=== PATIENT | female | born 1930 | race Caucasian/White ===

== ENCOUNTER → 2017-02-23 | Outpatient (CLI) | payer MEDICARE, BC ==
[2017-02-23 10:18] LABS: Basophils % (A) 0 %; CH 31.2; CHCM 33.1; Eosinophils # (A) 0.2 k/uL (0-0.7); Eosinophils % (A) 4 %; HCT 36.4 % (34.0-46.0); HDW 2.27; Luc # (Auto) 0.12; Luc % (Auto) 3; Lymphocytes # (A) 1.4 k/uL (1.0-4.8); Lymphocytes % (A) 30 %; MCH 31.2 pg (25.0-35.0); MCHC 32.8 g/dL (31.0-37.0); MCV 94.9 fL (80.0-100.0); Mean Platelet Volume 6.7; Monocytes # (A) 0.2 k/uL (0-1.0); Monocytes % (A) 5 %; Neutrophils # (A) 2.7 k/uL (1.3-7.7); Neutrophils % (A) 58 %; RBC 3.84 m/uL (3.80-5.40); RDW 13.3 % (11.5-15.5); WBC 4.7 k/uL (3.8-10.6); WBC (Perox) 4.86
[2017-02-23 10:42] LABS: ALT 24 U/L (9-52); AST 19 U/L (14-36); Alkaline Phosphatase 74 U/L (38-126); Anion Gap 10 mmol/L; Blood Urea Nitrogen 25 mg/dL (7-17); Calcium 9.4 mg/dL (8.4-10.2); Carbon Dioxide 28 mmol/L (22-30); Chloride 103 mmol/L (98-107); Cholesterol 182 mg/dL (<200); Glucose 125 mg/dL (74-99); HDL Cholesterol 62 mg/dL (40-60); Non-African American GFR(MDRD) >60 (>60 ml/min/1.73 sqM); Potassium 4.3 mmol/L (3.5-5.1); Sodium 141 mmol/L (137-145); Total Bilirubin 1.1 mg/dL (0.2-1.3); Total Protein 7.1 g/dL (6.3-8.2); Triglycerides 58 mg/dL (<150)
[2017-02-23 11:35] LABS: Hemoglobin A1C 6.7 % (4.2-6.1)
== END | disposition home or self-care (01) ==
LOC: LABWHC1 09:13
PROVIDERS: ATTEND Family Medicine
DX: E11.9 Type 2 diabetes mellitus without complications (principal)
CPT/HCPCS: 36415; 80053; 80061; 82043; 83036; 84443; 85025

== ENCOUNTER → 2017-09-03 | Outpatient (CLI) | payer MEDICARE, BC ==
[2017-09-03 09:16] LABS: ALT 36 U/L (9-52); AST 24 U/L (14-36); Alkaline Phosphatase 74 U/L (38-126); Anion Gap 11 mmol/L; Blood Urea Nitrogen 21 mg/dL (7-17); Calcium 9.7 mg/dL (8.4-10.2); Carbon Dioxide 26 mmol/L (22-30); Chloride 103 mmol/L (98-107); Cholesterol 210 mg/dL (<200); Glucose 152 mg/dL (74-99); HDL Cholesterol 74 mg/dL (40-60); Non-African American GFR(MDRD) >60 (>60 ml/min/1.73 sqM); Potassium 4.5 mmol/L (3.5-5.1); Sodium 140 mmol/L (137-145); Total Bilirubin 1.2 mg/dL (0.2-1.3); Total Protein 7.5 g/dL (6.3-8.2)
[2017-09-03 12:17] LABS: Hemoglobin A1C 6.9 % (4.2-6.1)
== END | disposition home or self-care (01) ==
LOC: LABWHC1 08:32
PROVIDERS: ATTEND Family Medicine
DX: E11.9 Type 2 diabetes mellitus without complications (principal)
CPT/HCPCS: 36415; 80053; 80061; 83036

== ENCOUNTER → 2018-03-18 | Outpatient (CLI) | payer MEDICARE, BC ==
[2018-03-18 10:40] LABS: Basophils % (A) 1 %; Eosinophils # (A) 0.3 k/uL (0-0.7); Eosinophils % (A) 5 %; HCT 37.2 % (34.0-46.0); HGB 12.6 gm/dL (11.4-16.0); Lymphocytes # (A) 1.9 k/uL (1.0-4.8); Lymphocytes % (A) 34 %; MCH 30.8 pg (25.0-35.0); MCV 90.4 fL (80.0-100.0); Mean Platelet Volume 6.7; Monocytes # (A) 0.3 k/uL (0-1.0); Monocytes % (A) 5 %; Neutrophils # (A) 2.9 k/uL (1.3-7.7); Neutrophils % (A) 53 %; Platelet Count 241 k/uL (150-450); RBC 4.11 m/uL (3.80-5.40); RDW 13.8 % (11.5-15.5); WBC 5.5 k/uL (3.8-10.6)
[2018-03-18 10:54] LABS: ALT 28 U/L (9-52); AST 18 U/L (14-36); Albumin 4.1 g/dL (3.5-5.0); Alkaline Phosphatase 79 U/L (38-126); Anion Gap 10 mmol/L; Blood Urea Nitrogen 30 mg/dL (7-17); Calcium 9.3 mg/dL (8.4-10.2); Carbon Dioxide 27 mmol/L (22-30); Chloride 103 mmol/L (98-107); Cholesterol 216 mg/dL (<200); Glucose 135 mg/dL (74-99); HDL Cholesterol 58 mg/dL (40-60); LDL Cholesterol,Calculated 145 mg/dL (0-99); Potassium 4.3 mmol/L (3.5-5.1); Sodium 140 mmol/L (137-145); Total Bilirubin 0.9 mg/dL (0.2-1.3); Total Protein 6.7 g/dL (6.3-8.2); Triglycerides 66 mg/dL (<150)
== END | disposition home or self-care (01) ==
LOC: LABWHC1 10:08
PROVIDERS: ATTEND Family Medicine
DX: E11.65 Type 2 diabetes mellitus with hyperglycemia (principal)
CPT/HCPCS: 36415; 80053; 80061; 82043; 82570; 84443; 85025

== ENCOUNTER 2019-04-16 07:55 | Emergency (ER) | payer MEDICARE, BC ==
[2019-04-16] MEDS ORDERED: LIDOCAINE 1% INJ 10MG/ML (20 ML MDV) SQ ONE (08:16)
[2019-04-16] MEDS ORDERED: DIPH,PERTUS(ACELL)TETVAC-LF 0.5 ML VIAL IM ONE (08:16)
--- NOTE | 2019-04-16 08:21 | ED ---
Fall HPI - General Chief Complaint: Fall Stated Complaint: FALL, HEAD INJURY Time Seen by Provider: 04/16/19 08:01 Source: patient, EMS, RN notes reviewed, old records reviewed Mode of arrival: EMS - History of Present Illness Initial Comments: Patient is a pleasant 88-year-old female presents emergency department today for evaluation after she tripped and fell down the bottom of her steps. Patient reports that she was going down the stairs to get ready to make breakfast. She reports she slipped and fell, she hit her head on the wall. She denies loss conscious. She does report a laceration over her scalp. She also complains of left ankle pain and thoracic back pain. Patient states that she was able to ambulate after the incident. Denies any chest pain shortness of breath nausea or vomiting. She denies any visual changes. - Related Data Allergies Allergy/AdvReac Type Severity Reaction Status Date / Time No Known Allergies Allergy Verified 04/16/19 08:05 Review of Systems ROS Statement: Those systems with pertinent positive or pertinent negative responses have been documented in the HPI. ROS Other: All systems not noted in ROS Statement are negative. Past Medical History Past Medical History: Diabetes Mellitus, Hypertension History of Any Multi-Drug Resistant Organisms: None Reported Past Surgical History: No Surgical Hx Reported Past Psychological History: No Psychological Hx Reported Smoking Status: Never smoker Past Alcohol Use History: None Reported Past Drug Use History: None Reported General Exam - General Exam Comments Initial Comments: 88-year-old female. Alert and oriented 3. Resting comfortably in bed. No significant distress. Limitations: no limitations General appearance: alert, in no apparent distress Head exam: Present: atraumatic, normocephalic, normal inspection, other (Patient has a 4 cm laceration over the left parietal scalp.) Eye exam: Present: normal appearance, PERRL, EOMI. Absent: scleral icterus, conjunctival injection, periorbital swelling ENT exam: Present: normal exam, mucous membranes moist Neck exam: Present: normal inspection. Absent: tenderness, meningismus, lymphadenopathy Respiratory exam: Present: normal lung sounds bilaterally. Absent: respiratory distress, wheezes, rales, rhonchi, stridor Cardiovascular Exam: Present: regular rate, normal rhythm, normal heart sounds. Absent: systolic murmur, diastolic murmur, rubs, gallop, clicks GI/Abdominal exam: Present: soft, normal bowel sounds. Absent: distended, tenderness, guarding, rebound, rigid Extremities exam: Present: normal inspection, full ROM, normal capillary refill, other (She has bruising and tenderness over the left ankle and foot. No pulse and sensation distally. Full range of motion noted.). Absent: tenderness, pedal edema, joint swelling, calf tenderness Back exam: Present: normal inspection Neurological exam: Present: alert, oriented X3, CN II-XII intact Psychiatric exam: Present: normal affect, normal mood Skin exam: Present: warm, dry, intact, normal color. Absent: rash Course Vital Signs 04/16/19 08:06 Temperature 97.8 F Pulse Rate 52 L Respiratory 18 Rate Blood Pressure 180/86 O2 Sat by Pulse 96 Oximetry Procedures - Laceration Laceration #1 Site: scalp Size (cm): 4 Description: linear Depth: simple, single layer Anesthetic Used: lidocaine 1% Anesthesia Technique: local infiltration Amount (mls): 5 Pre-repair: wound explored, irrigated extensively Type of Sutures: other (Blayne) Number of Sutures: 5 Patient Tolerated Procedure: well, no complications - Orthopedic Splinting/Casting Injury #1 Side: left Upper Extremity Immobilizer: Jake wrap Lower Extremity Injury Location: ankle Medical Decision Making - Medical Decision Making 88-year-old female fall presents after tripping fall. Patient reports she fell hitting her head and complains of some neck and back pain and left ankle pain. Infections of the ankle reviewed negative for any acute process. Examining without significant difficulty. Jake wrap put on the ankle. She has a laceration of her scalp, closed with 5 blayne. She reports her tetanus is up-to-date. Blood work was reviewed and are. UA is negative for infection. Patient was instructed this time described Motrin Tylenol and stressed infection monitoring for the laceration of her scalp. - Lab Data Result diagrams: 04/16/19 08:20 04/16/19 08:20 Lab Results 04/16/19 04/16/19 04/16/19 Range/Units 08:20 08:20 08:20 WBC 4.3 (3.8-10.6) k/uL RBC 3.86 (3.80-5.40) m/uL Hgb 11.6 (11.4-16.0) gm/dL Hct 34.9 (34.0-46.0) % MCV 90.4 (80.0-100.0) fL MCH 30.1 (25.0-35.0) pg MCHC 33.3 (31.0-37.0) g/dL RDW 13.7 (11.5-15.5) % Plt Count 220 (150-450) k/uL Neutrophils % 62 % Lymphocytes % 24 % Monocytes % 6 % Eosinophils % 7 % Basophils % 0 % Neutrophils # 2.7 (1.3-7.7) k/uL Lymphocytes # 1.0 (1.0-4.8) k/uL Monocytes # 0.2 (0-1.0) k/uL Eosinophils # 0.3 (0-0.7) k/uL Basophils # 0.0 (0-0.2) k/uL Sodium 139 (137-145) mmol/L Potassium 3.9 (3.5-5.1) mmol/L Chloride 108 H (98-107) mmol/L Carbon Dioxide 26 (22-30) mmol/L Anion Gap 5 mmol/L BUN 20 H (7-17) mg/dL Creatinine 0.48 L (0.52-1.04) mg/dL Est GFR (CKD-EPI)AfAm >90 (>60 ml/min/1.73 sqM) Est GFR (CKD-EPI)NonAf 89 (>60 ml/min/1.73 sqM) Glucose 133 H (74-99) mg/dL Calcium 8.8 (8.4-10.2) mg/dL Urine Color Colorless Urine Appearance Clear (Clear) Urine pH 7.5 (5.0-8.0) Ur Specific Saxis 1.007 (1.001-1.035) Urine Protein Negative (Negative) Urine Glucose (UA) Negative (Negative) Urine Ketones Negative (Negative) Urine Blood Negative (Negative) Urine Nitrite Negative (Negative) Urine Bilirubin Negative (Negative) Urine Urobilinogen <2.0 (<2.0) mg/dL Ur Leukocyte Esterase Negative (Negative) - Radiology Data Radiology results: report reviewed CT shows no suspicious acute changes. Some mild chronic appearing white matter ischemic change may be present. Grade 1 spondylolisthesis anterior on C6 and C7. Degenerative changes C5-C6. Mild degenerative disc disease remaining cervical spine. Glasses of lower spine. Degenerative changes in the lower cervical spine. No osseous normality. No acute osseous abdomen. Follow-up exam can be performed in 7-10 days. Disposition Clinical Impression: Fall, Ankle sprain, Scalp laceration Disposition: HOME SELF-CARE Condition: Good Instructions (If sedation given, give patient instructions): Fall Prevention for Older Adults (ED) Additional Instructions: Please return to the emergency room in 8-10 days to have blayne removed. Please leave wound covered for the first 24-48 hours and then leave open to air after that time. Please use clean soap and water to clean the suture area to prevent scabbing over the top of your sutures. Please watch for any signs of infection which may include but not limited to increased pain, swelling, redness, fever or chills. Please return to the emergency room if any signs of infection do occur. Please return to the emergency room for any other concerns or complications. Motrin Tylenol for pain. Patient should apply ice over the areas that are sore. Were the Jake wrap for her ankle. Is patient prescribed a controlled substance at d/c from ED?: No Referrals: Kal Juarez MD [Primary Care Provider] - 1-2 days Time of Disposition: 10:30
[2019-04-16 08:33] LABS: Appearance,Urine Clear (Clear); Basophils % (A) 0 %; Bilirubin,Urine Negative (Negative); Blood,Urine Negative (Negative); Color,Urine Colorless; Eosinophils # (A) 0.3 k/uL (0-0.7); Eosinophils % (A) 7 %; Glucose,Urine (UA) Negative (Negative); HCT 34.9 % (34.0-46.0); HGB 11.6 gm/dL (11.4-16.0); Ketones,Urine Negative (Negative); Leukocyte Esterase,Urine Negative (Negative); Lymphocytes % (A) 24 %; MCH 30.1 pg (25.0-35.0); MCHC 33.3 g/dL (31.0-37.0); MCV 90.4 fL (80.0-100.0); Mean Platelet Volume 6.7; Monocytes # (A) 0.2 k/uL (0-1.0); Monocytes % (A) 6 %; Neutrophils # (A) 2.7 k/uL (1.3-7.7); Neutrophils % (A) 62 %; Nitrite,Urine Negative (Negative); PH, Urine 7.5 (5.0-8.0); Platelet Count 220 k/uL (150-450); Protein,Urine Negative (Negative); RBC 3.86 m/uL (3.80-5.40); RDW 13.7 % (11.5-15.5); Specific Gravity,Urine 1.007 (1.001-1.035); Urobilinogen,Urine <2.0 mg/dL (<2.0); WBC 4.3 k/uL (3.8-10.6)
[2019-04-16 08:41] LABS: Anion Gap 5 mmol/L; Blood Urea Nitrogen 20 mg/dL (7-17); Calcium 8.8 mg/dL (8.4-10.2); Carbon Dioxide 26 mmol/L (22-30); Chloride 108 mmol/L (98-107); Glucose 133 mg/dL (74-99); Potassium 3.9 mmol/L (3.5-5.1); Sodium 139 mmol/L (137-145)
--- NOTE | 2019-04-16 09:56 | CT ---
EXAMINATION TYPE: CT brain ranjit wo con DATE OF EXAM: 04/16/2019 COMPARISON: 02/24/2014 HISTORY: Fall today with Posterior injury CT DLP: 1353.9 mGycm, Automated exposure control for dose reduction was used. CONTRAST: Patient injected with 0 mL of Isovue 300. CT of the brain is performed utilizing 3 mm thick sections through the posterior fossa and 3 mm thick sections through the remaining calvarium. Study is performed within 24 hours of arrival to the hospital. No abnormal hyperdensity is present to suggest an acute intracranial hemorrhage. No mass lesion is evident. No acute infarcts are evident. Some mild periventricular white matter hypodensity is present, likely on the basis of chronic white matter ischemic change is increasing left watershed region. Ventricles and sulci are appropriate for the patient age. Paranasal sinuses and mastoid air cells within the [id number] are clear. IMPRESSIONS: 1. No suspicious acute changes. Some mild chronic appearing white matter ischemic change may be prese nt. CT cervical spine. COMPARISON: None CT of the cervical spine is performed in the axial plane at 2 mm thick sections. Reconstructed image s in the coronal, and sagittal plane are reviewed on the computer. No acute fractures are evident. There is a grade 1 spondylolisthesis of C6 anteriorly on C7. There is loss of disc height C5-6 and degenerative disc changes C4-5. Diffuse disc space degenerative changes present through the remaining cervical spine. Vertebral body heights are preserved. No spinal canal stenosis is evident. No neural foraminal stenosis is evident. Some mild apical areas of pneumonitis are present. Consider follow-up. IMPRESSIONS: 1. Grade 1 spondylolisthesis C6 anteriorly on C7. 2. Degenerative disc changes C5-6 and to a lesser degree C4-5. Mild degenerative disc changes through the remaining cervical spine.
--- NOTE | 2019-04-16 10:25 | XR ---
EXAMINATION TYPE: XR ankle complete LT DATE OF EXAM: 04/16/2019 COMPARISON: None HISTORY: Pain fall TECHNIQUE: 3 view left ankle FINDINGS: Structures appear somewhat osteopenic. The ankle mortise is intact. No acute displaced frac tures are identified. Soft tissues appear normal. IMPRESSION: 1. No acute osseous abnormality. Follow-up exams can be performed 7-10 days from acute trauma for co ntinued pain.
--- NOTE | 2019-04-16 10:26 | XR ---
EXAMINATION TYPE: XR thoracic spine 2V DATE OF EXAM: 04/16/2019 COMPARISON: None HISTORY: Fall, pain TECHNIQUE: 3 view thoracic spine FINDINGS: There is a scoliosis centered at approximately T10-11. There are 12 thoracic type vertebral bodies. The pedicles are intact. Diffuse degenerative disc changes are throughout the thoracic spine . Spondylosis within the lower thoracic spine. Grade 1 spondylolisthesis of C6 anteriorly on C7 is ag ain evident. IMPRESSION: 1. Scoliosis lower thoracic spine. 2. Degenerative disc changes greater in the lower cervical spine 3. No acute osseous abnormality.
--- NOTE | 2019-04-16 10:32 | XR ---
EXAMINATION TYPE: XR chest 2V DATE OF EXAM: 04/16/2019 COMPARISON: None INDICATION: Pain, fall TECHNIQUE: Frontal and lateral views of the chest are obtained. FINDINGS: The heart size is normal. The pulmonary vasculature is normal. The lungs are clear. IMPRESSION: 1. No acute pulmonary process.
[2019-04-16 10:50] VITALS: BP 164/89; PULSE 60; RESP 16; TEMP 97.9
== END 2019-04-16 10:55 | disposition home or self-care (01) ==
LOC: EC 07:55
DX: S01.01XA Laceration without foreign body of scalp, initial encounter (principal); S93.402A Sprain of unspecified ligament of left ankle, initial encounter; M43.12 Spondylolisthesis, cervical region; M50.321 Other cervical disc degeneration at C4-C5 level; M47.812 Spondylosis without myelopathy or radiculopathy, cervical region; M54.6 Pain in thoracic spine; Z53.20 Procedure and treatment not carried out because of patient's decision for unspecified reasons; W10.9XXA Fall (on) (from) unspecified stairs and steps, initial encounter; Y93.01 Activity, walking, marching and hiking
CPT/HCPCS: 36415; 80048; 85025; 81003; 72070; 73610; 71046; 72125; 70450; 99284; 12002; J2001

== ENCOUNTER 2020-05-29 11:34 | Emergency (ER) | payer MEDICARE, BC ==
[2020-05-29 11:45] VITALS: RESP 16; TEMP 97.9
--- NOTE | 2020-05-29 12:26 | ED ---
Fall HPI - General Source: patient, EMS, RN notes reviewed Mode of arrival: EMS <Hugo Arthur - Last Filed: 05/29/20 13:33> <Shiva Ham - Last Filed: 05/29/20 13:37> - General Chief Complaint: Fall Stated Complaint: Fall Time Seen by Provider: 05/29/20 12:18 - History of Present Illness Initial Comments: 89-year-old female presents emergency from chief complaint of fall, head injury. Patient states that she went to reach for something tripped over her chair causing her fall striking her head on the buffet. Patient states that she has headache, neck discomfort. Patient was placed in a soft collar by EMS. Patient is a hematoma to the left occipital region. Denies any blurred vision slight nausea. Patient denies any upper or lower extremity injuries no back pain. Patient states that she wants while takes an aspirin denies any thinners. (Hugo Arthur) - Related Data Home Medications Medication Instructions Recorded Confirmed ALPRAZolam [Xanax] 0.25 mg PO DAILY PRN 04/16/19 04/16/19 Atorvastatin Calcium [Lipitor] 20 mg PO DAILY 04/16/19 04/16/19 HYDROcodone/APAP 5-325MG [[place] 1 tab PO Q12H PRN 04/16/19 04/16/19 5-325] Lisinopril 30 mg PO DAILY 04/16/19 04/16/19 amLODIPine [Norvasc] 5 mg PO DAILY 04/16/19 04/16/19 glipiZIDE [Glucotrol XL] 2.5 mg PO DAILY 04/16/19 04/16/19 Allergies Allergy/AdvReac Type Severity Reaction Status Date / Time No Known Allergies Allergy Verified 05/29/20 11:45 Review of Systems ROS Other: All systems not noted in ROS Statement are negative. <Hugo Arthur - Last Filed: 05/29/20 13:33> ROS Other: All systems not noted in ROS Statement are negative. <Shiva Ham - Last Filed: 05/29/20 13:37> ROS Statement: Those systems with pertinent positive or pertinent negative responses have been documented in the HPI. Past Medical History Past Medical History: Diabetes Mellitus, Hypertension History of Any Multi-Drug Resistant Organisms: None Reported Past Surgical History: No Surgical Hx Reported Past Psychological History: No Psychological Hx Reported Smoking Status: Never smoker Past Alcohol Use History: None Reported Past Drug Use History: None Reported <JersonHugo - Last Filed: 05/29/20 13:33> General Exam Limitations: no limitations General appearance: alert, in no apparent distress Head exam: Present: atraumatic, normocephalic. Absent: normal inspection ( hematoma left occipital) Eye exam: Present: normal appearance, PERRL, EOMI. Absent: scleral icterus, conjunctival injection, periorbital swelling ENT exam: Present: normal exam, normal oropharynx, mucous membranes moist, TM's normal bilaterally Neck exam: Present: normal inspection, tenderness. Absent: meningismus, full ROM (Patient soft c-collar), lymphadenopathy Respiratory exam: Present: normal lung sounds bilaterally. Absent: respiratory distress, wheezes, rales, rhonchi, stridor Cardiovascular Exam: Present: regular rate, normal rhythm, normal heart sounds. Absent: systolic murmur, diastolic murmur, rubs, gallop, clicks Neurological exam: Present: alert, oriented X3, CN II-XII intact, reflexes normal. Absent: motor sensory deficit Skin exam: Present: warm, dry, intact, normal color. Absent: rash <JersonHugo Watkins - Last Filed: 05/29/20 13:33> Course <Shiva Ham - Last Filed: 05/29/20 13:37> Vital Signs 05/29/20 11:42 Temperature 97.9 F Pulse Rate 60 Respiratory 16 Rate Blood Pressure 148/77 O2 Sat by Pulse 96 Oximetry - Reevaluation(s) Reevaluation #1: 05/29/20 13:36 PA supervision: I pursued a [id number] evaluation the patient she does present with complaints of a fall with left occipital pain. Evidence a hematoma no laceration. Patient had a CAT scan performed which was negative for acute processes. Patient was awake alert oriented 3 with a [place] Coma Scale of 15 she will be discharged. No other injuries reported. (Shiva Ham) Medical Decision Making <JersonHugo - Last Filed: 05/29/20 13:33> - Medical Decision Making 89-year-old female presents emergency from for fall, head injury. CT of head and neck were obtained there are no acute changes there are chronic changes unchanged from prior. Patient is neurologically intact. Patient be discharged in stable condition return parameters were discussed. (Hugo Arthur) Disposition Is patient prescribed a controlled substance at d/c from ED?: No Time of Disposition: 13:34 <Hugo Arthur - Last Filed: 05/29/20 13:33> <Shiva Ham - Last Filed: 05/29/20 13:37> Clinical Impression: Fall, Head injury, Scalp contusion Disposition: HOME SELF-CARE Condition: Stable Instructions (If sedation given, give patient instructions): Head Injury (ED) Additional Instructions: Please return to the Emergency Department if symptoms worsen or any other concerns. Referrals: Kal Juarez MD [Primary Care Provider] - 1-2 days
--- NOTE | 2020-05-29 13:26 | CT ---
EXAMINATION TYPE: CT brain ranjit wo con DATE OF EXAM: 05/29/2020 COMPARISON: 04/16/2019 HISTORY: 89-year-old female with pain after Fall CT DLP: 1255.4 mGycm Automated exposure control for dose reduction was used. Technique: Examination of the head was done in axial plane without intravenous contrast. Coronal and sagittal reconstructions performed. CT of the cervical spine was obtained in axial plane without intravenous injection of contrast mater ial. Coronal and sagittal reformatted images were obtained from the axial views for evaluation of f ractures, spinal alignment and canal. FINDINGS: Head: There is no evidence of acute intracranial hemorrhage, acute ischemic changes, mass, mass-effect, or extra-axial fluid collection. There is no effacement of cerebral sulci or basal subarachnoid cister ns. There is no hydrocephalus. There is no midline shift. Nelson-white matter distinction is preserv ed. Mild cerebral cortical volume loss. Mild patchy white matter hypodensities in both cerebral hemispher es. There are spotty calcifications in the bilateral carotid siphons. Left posterior scalp contusion. No underlying calvarial fracture. Paranasal sinuses and mastoid air cells appear well pneumatized. Orbits and globes are intact. Cervical spine: No craniocervical junction of the body, predental space widening, or prevertebral soft tissue swellin g. Degenerative changes at the C1 dens articulation. Grade 2 anterolisthesis at C6-C7 and grade 1 anterolisthesis at C4-C5 and C7-T1. Severe degenerative disc disease C5-C6. Scattered facet and uncovertebral joint arthropathy. Overall appearance similar to 04/16/2019. No acute fracture of the cervical spine seen. There appears to be a levoconvex scoliosis along the up per thoracic spine. Biapical pleural parenchymal scarring. Sagittal and coronal reformatted images confirm above findings. COMBINED IMPRESSION: 1. 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 Left posterior scalp contusion. No underlying skull fracture or acute intracranial abnormality seen. 2. No acute fracture seen of the cervical spine. 3. Grade 2 anterolisthesis at C6-C7 and grade 1 anterolisthesis at C4-C5 and C7-T1, unchanged. Severe degenerative disc disease C5-C6.
[2020-05-29 13:57] VITALS: BP 142/79; PULSE 71
== END 2020-05-29 13:57 | disposition home or self-care (01) ==
LOC: EC 11:34
DX: S00.03XA Contusion of scalp, initial encounter (principal); M54.2 Cervicalgia; E11.9 Type 2 diabetes mellitus without complications; Z79.84 Long term (current) use of oral hypoglycemic drugs; W01.190A Fall on same level from slipping, tripping and stumbling with subsequent striking against furniture, initial encounter
CPT/HCPCS: 70450; 72125; 99284

== ENCOUNTER 2020-12-09 07:53 | Emergency (ER) | payer MEDICARE, BC ==
[2020-12-09] MEDS ORDERED: FAMOTIDINE 20 MG/2 ML VIAL IV STA (08:23)
[2020-12-09] MEDS ORDERED: ONDANSETRON 4 MG/2 ML VIAL IVP STA (08:23)
[2020-12-09] MEDS ORDERED: SODIUM CHLORIDE 0.9% 1,000 ML IV STA (08:23)
[2020-12-09] MEDS ORDERED: DICYCLOMINE 10 MG/ML 2 ML AMP IM STA (08:23)
--- NOTE | 2020-12-09 08:26 | ED ---
General Adult HPI - General Chief complaint: Abdominal Pain Stated complaint: Food Poisioning Time Seen by Provider: 12/09/20 08:02 Source: patient, RN notes reviewed Mode of arrival: wheelchair Limitations: no limitations - History of Present Illness Initial comments: Patient is a pleasant 89-year-old female presenting to the emergency Department with complaints of diarrhea. Onset of symptoms was 2-3 days ago after eating cheesecake. Patient had a family member also be cheesecake with similar symptoms. Patient has had diarrhea multiple times throughout the day, unclear how many. Patient is having some abdominal cramping. Patient has some mild nausea without vomiting. There is some decreased appetite. No fever. No history of chronic abdominal problems. No blood. - Related Data Home Medications Medication Instructions Recorded Confirmed ALPRAZolam [Xanax] 0.25 mg PO DAILY PRN 04/16/19 12/09/20 amLODIPine [Norvasc] 5 mg PO DAILY 04/16/19 12/09/20 glipiZIDE [Glucotrol XL] 2.5 mg PO DAILY 04/16/19 12/09/20 lisinopriL 30 mg PO DAILY 04/16/19 12/09/20 Aspirin EC [Ecotrin Low Dose] 81 mg PO BID 12/09/20 12/09/20 Vit C/E/Zn/Coppr/Lutein/Zeaxan 1 cap PO BID 12/09/20 12/09/20 [Preservision Areds 2 Softgel] Allergies Allergy/AdvReac Type Severity Reaction Status Date / Time No Known Allergies Allergy Verified 12/09/20 09:46 Review of Systems ROS Statement: Those systems with pertinent positive or pertinent negative responses have been documented in the HPI. ROS Other: All systems not noted in ROS Statement are negative. Constitutional: Denies: fever Eyes: Denies: eye pain ENT: Denies: ear pain Respiratory: Denies: cough Cardiovascular: Denies: chest pain Endocrine: Denies: fatigue Gastrointestinal: Reports: as per HPI, abdominal pain, nausea, diarrhea. Denies: vomiting Genitourinary: Denies: dysuria Musculoskeletal: Denies: back pain Skin: Denies: rash Neurological: Denies: headache Past Medical History Past Medical History: Diabetes Mellitus, Hypertension History of Any Multi-Drug Resistant Organisms: None Reported Past Surgical History: No Surgical Hx Reported Past Psychological History: No Psychological Hx Reported Smoking Status: Former smoker Past Alcohol Use History: None Reported Past Drug Use History: None Reported General Exam Limitations: no limitations General appearance: alert, in no apparent distress Head exam: Present: normocephalic Eye exam: Present: normal appearance Neck exam: Present: normal inspection Respiratory exam: Present: normal lung sounds bilaterally Cardiovascular Exam: Present: regular rate, normal rhythm Expanded Peripheral pulses: 2+: Posterior Tibialis (R), Posterior Tibialis (L) GI/Abdominal exam: Present: soft, tenderness (Minimal diffuse tenderness), normal bowel sounds. Absent: distended, guarding, rebound, rigid, pulsatile mass Extremities exam: Present: normal inspection. Absent: pedal edema, calf tenderness Neurological exam: Present: alert Psychiatric exam: Present: normal affect, normal mood Skin exam: Present: normal color Course Vital Signs 12/09/20 12/09/20 07:57 10:50 Temperature 98.5 F Pulse Rate 64 54 L Respiratory 18 17 Rate Blood Pressure 143/81 137/90 O2 Sat by Pulse 97 97 Oximetry Medical Decision Making - Medical Decision Making Patient reevaluated and feeling much better. Abdomen soft and nontender. Patient and family updated on results and need for follow-up. Patient is happy to be going home. - Lab Data Result diagrams: 12/09/20 08:42 12/09/20 08:42 Lab Results 12/09/20 12/09/20 12/09/20 Range/Units 08:42 08:42 08:42 WBC 6.8 (3.8-10.6) k/uL RBC 3.98 (3.80-5.40) m/uL Hgb 12.7 (11.4-16.0) gm/dL Hct 36.1 (34.0-46.0) % MCV 90.6 (80.0-100.0) fL MCH 31.8 (25.0-35.0) pg MCHC 35.1 (31.0-37.0) g/dL RDW 13.1 (11.5-15.5) % Plt Count 195 (150-450) k/uL MPV 7.5 Neutrophils % 71 % Lymphocytes % 18 % Monocytes % 6 % Eosinophils % 4 % Basophils % 0 % Neutrophils # 4.8 (1.3-7.7) k/uL Lymphocytes # 1.2 (1.0-4.8) k/uL Monocytes # 0.4 (0-1.0) k/uL Eosinophils # 0.3 (0-0.7) k/uL Basophils # 0.0 (0-0.2) k/uL PT 11.3 (9.0-12.0) sec INR 1.1 (<1.2) APTT 22.4 (22.0-30.0) sec Sodium 134 L (137-145) mmol/L Potassium 4.1 (3.5-5.1) mmol/L Chloride 104 (98-107) mmol/L Carbon Dioxide 24 (22-30) mmol/L Anion Gap 6 mmol/L BUN 20 H (7-17) mg/dL Creatinine 0.54 (0.52-1.04) mg/dL Est GFR (CKD-EPI)AfAm >90 (>60 ml/min/1.73 sqM) Est GFR (CKD-EPI)NonAf 84 (>60 ml/min/1.73 sqM) Glucose 255 H (74-99) mg/dL Calcium 9.1 (8.4-10.2) mg/dL Total Bilirubin 1.4 H (0.2-1.3) mg/dL AST 17 (14-36) U/L ALT 13 (4-34) U/L Alkaline Phosphatase 62 (38-126) U/L Total Protein 6.6 (6.3-8.2) g/dL Albumin 3.8 (3.5-5.0) g/dL Amylase <30 L (30-110) U/L Lipase 22 L (23-300) U/L Coronavirus (PCR) (Not Detectd) 12/09/20 Range/Units 09:23 WBC (3.8-10.6) k/uL RBC (3.80-5.40) m/uL Hgb (11.4-16.0) gm/dL Hct (34.0-46.0) % MCV (80.0-100.0) fL MCH (25.0-35.0) pg MCHC (31.0-37.0) g/dL RDW (11.5-15.5) % Plt Count (150-450) k/uL MPV Neutrophils % % Lymphocytes % % Monocytes % % Eosinophils % % Basophils % % Neutrophils # (1.3-7.7) k/uL Lymphocytes # (1.0-4.8) k/uL Monocytes # (0-1.0) k/uL Eosinophils # (0-0.7) k/uL Basophils # (0-0.2) k/uL PT (9.0-12.0) sec INR (<1.2) APTT (22.0-30.0) sec Sodium (137-145) mmol/L Potassium (3.5-5.1) mmol/L Chloride (98-107) mmol/L Carbon Dioxide (22-30) mmol/L Anion Gap mmol/L BUN (7-17) mg/dL Creatinine (0.52-1.04) mg/dL Est GFR (CKD-EPI)AfAm (>60 ml/min/1.73 sqM) Est GFR (CKD-EPI)NonAf (>60 ml/min/1.73 sqM) Glucose (74-99) mg/dL Calcium (8.4-10.2) mg/dL Total Bilirubin (0.2-1.3) mg/dL AST (14-36) U/L ALT (4-34) U/L Alkaline Phosphatase (38-126) U/L Total Protein (6.3-8.2) g/dL Albumin (3.5-5.0) g/dL Amylase (30-110) U/L Lipase (23-300) U/L Coronavirus (PCR) Not Detected (Not Detectd) - Radiology Data Radiology results: report reviewed (Computed tomography scan abdomen pelvis shows possible enteritis or colitis), image reviewed (Abdominal x-ray reveals no acute process) Disposition Clinical Impression: Diarrhea Disposition: HOME SELF-CARE Condition: Stable Instructions (If sedation given, give patient instructions): Dehydration (ED), Acute Diarrhea (ED) Additional Instructions: Please follow-up with primary care physician in the beginning of the week. Increase oral fluids. Return for fevers, abdominal pain, uncontrolled diarrhea, concerns for dehydration, worsening symptoms or other concerns. Is patient prescribed a controlled substance at d/c from ED?: No Referrals: Kal Juarez MD [Primary Care Provider] - 1-2 days Time of Disposition: 11:11
[2020-12-09 08:46] LABS: Basophils % (A) 0 %; Eosinophils # (A) 0.3 k/uL (0-0.7); Eosinophils % (A) 4 %; HCT 36.1 % (34.0-46.0); HGB 12.7 gm/dL (11.4-16.0); Lymphocytes # (A) 1.2 k/uL (1.0-4.8); Lymphocytes % (A) 18 %; MCH 31.8 pg (25.0-35.0); MCHC 35.1 g/dL (31.0-37.0); MCV 90.6 fL (80.0-100.0); Mean Platelet Volume 7.5; Monocytes # (A) 0.4 k/uL (0-1.0); Monocytes % (A) 6 %; Neutrophils # (A) 4.8 k/uL (1.3-7.7); Neutrophils % (A) 71 %; Platelet Count 195 k/uL (150-450); RBC 3.98 m/uL (3.80-5.40); RDW 13.1 % (11.5-15.5); WBC 6.8 k/uL (3.8-10.6)
[2020-12-09 09:01] LABS: INR 1.1 (<1.2); Partial Thromboplastin Time 22.4 sec (22.0-30.0); Prothrombin Time 11.3 sec (9.0-12.0)
[2020-12-09 09:02] LABS: ALT 13 U/L (4-34); AST 17 U/L (14-36); African American GFR (CKD) >90 (>60 ml/min/1.73 sqM); Albumin 3.8 g/dL (3.5-5.0); Alkaline Phosphatase 62 U/L (38-126); Amylase <30 U/L (30-110); Anion Gap 6 mmol/L; Blood Urea Nitrogen 20 mg/dL (7-17); Calcium 9.1 mg/dL (8.4-10.2); Carbon Dioxide 24 mmol/L (22-30); Chloride 104 mmol/L (98-107); Glucose 255 mg/dL (74-99); Lipase 22 U/L (23-300); Non-African American GFR(CKD) 84 (>60 ml/min/1.73 sqM); Potassium 4.1 mmol/L (3.5-5.1); Sodium 134 mmol/L (137-145); Total Bilirubin 1.4 mg/dL (0.2-1.3); Total Protein 6.6 g/dL (6.3-8.2)
--- NOTE | 2020-12-09 09:41 | XR ---
KUB HISTORY: Abdominal pain Frontal KUB submitted. There is a spinal curvature present. Lung bases are clear. Dense vascular calcifications are noted. B one mineralization is reduced. No evident bowel obstruction or pneumoperitoneum. IMPRESSION: Nonspecific bowel gas pattern
[2020-12-09] MEDS ORDERED: MORPHINE SULFATE 2 MG/ML SYRINGE IVP STA (09:48)
--- NOTE | 2020-12-09 10:56 | CT ---
EXAMINATION TYPE: CT abdomen pelvis w con DATE OF EXAM: 12/09/2020 COMPARISON: KUB 12/09/2020 HISTORY: Diarrhea for the past [address] DLP: 530.8 mGycm Automated exposure control for dose reduction was used. TECHNIQUE: Helical acquisition of images from the lung bases through the pelvis have been completed. CONTRAST: Performed without Oral Contrast and with IV Contrast, patient injected with 100 mL of Isovue 300. FINDINGS: The stomach is collapsed, difficult to exclude underlying mucosal abnormality. Dense athero sclerotic calcifications are present especially along the splenic artery. LUNG BASES: No significant abnormality is appreciated. AORTA: No significant abnormality is appreciated. LIVER/GB: No significant abnormality is appreciated, gallbladder thought to be contracted anteriorly. PANCREAS: Not well seen, thought to be atrophic. SPLEEN: No significant abnormality is seen. ADRENALS: No significant abnormality is seen. KIDNEYS: No significant abnormality is seen. REPRODUCTIVE ORGANS: Thought to be atrophic BOWEL: Question some thickening along the colon, possibly small bowel, there are diverticular change s within the sigmoid colon. FREE AIR: No Free Air visible. ASCITES: None visible. PELVIC ADENOPATHY: None visualized. RETROPERITONEAL ADENOPATHY: No Retroperitoneal Adenopathy visible. URINARY BLADDER: No significant abnormality is seen. OSSEOUS STRUCTURES: Degenerative disc changes, facet arthropathy noted, there is a spinal curvature. IMPRESSION: CORRELATE FOR POSSIBLE COLITIS, DIVERTICULOSIS , POSSIBLE ENTERITIS, ADDITIONAL FINDINGS ABOVE
[2020-12-09 11:21] VITALS: BP 132/65; PULSE 58; RESP 20; TEMP 98
== END 2020-12-09 11:20 | disposition home or self-care (01) ==
LOC: EC 07:53
DX: R19.7 Diarrhea, unspecified (principal); R10.9 Unspecified abdominal pain; R11.0 Nausea; R10.817 Generalized abdominal tenderness; E11.9 Type 2 diabetes mellitus without complications; I10 Essential (primary) hypertension; Z79.84 Long term (current) use of oral hypoglycemic drugs; Z79.82 Long term (current) use of aspirin; Z79.899 Other long term (current) drug therapy; Z87.891 Personal history of nicotine dependence
CPT/HCPCS: 36415; 80053; 82150; 83690; 85025; 85610; 85730; 87635; 74018; 74177; 99284; 96374; 96375 ×2; 96361 ×3; 96372; J0500; J2405; J2270; Q9967

== ENCOUNTER 2020-12-10 05:25 | Observation (INO) | payer MEDICARE, BC ==
[2020-12-10] MEDS ORDERED: ONDANSETRON 4 MG/2 ML VIAL IVP STA (05:40)
[2020-12-10] MEDS ORDERED: PANTOPRAZOLE 40 MG/10 ML VIAL IVP STA (05:40)
[2020-12-10] MEDS ORDERED: SODIUM CHLORIDE 0.9% 1,000 ML IV STA ×2 (05:40)
--- NOTE | 2020-12-10 05:41 | ED ---
Recheck HPI - General Chief Complaint: Abdominal Pain Stated Complaint: Abdominal pain Time Seen by Provider: 12/10/20 05:28 Source: patient, family, RN notes reviewed, old records reviewed Mode of arrival: wheelchair Limitations: no limitations - History of Present Illness Initial Comments: This is a 89-year-old female who was seen here for evaluation earlier today. Patient admitted earlier today for abdominal pain not feeling well persistent nausea vomiting. Symptoms of been persistent despite discharged she has consistent and persistent abdominal pain does not feel well no improvement in symptoms here in the ER MD Complaint: abnormal lab, other (abdominal pain, NV, weak) Returns Today for: Called Because of Abnormal Lab/Test Symptoms Since Prior Visit: worsening pain Associated Symptoms: malaise, nausea, abdominal pain Treatments Prior to Arrival: other medications (nausea), Given Pain Meds on - Related Data Home Medications Medication Instructions Recorded Confirmed amLODIPine [Norvasc] 5 mg PO DAILY 04/16/19 12/10/20 glipiZIDE [Glucotrol XL] 2.5 mg PO DAILY 04/16/19 12/10/20 lisinopriL 30 mg PO DAILY 04/16/19 12/10/20 Aspirin EC [Ecotrin Low Dose] 81 mg PO BID 12/09/20 12/10/20 Vit C/E/Zn/Coppr/Lutein/Zeaxan 1 cap PO BID 12/09/20 12/10/20 [Preservision Areds 2 Softgel] Allergies Allergy/AdvReac Type Severity Reaction Status Date / Time No Known Allergies Allergy Verified 12/10/20 06:35 Review of Systems ROS Statement: Those systems with pertinent positive or pertinent negative responses have been documented in the HPI. ROS Other: All systems not noted in ROS Statement are negative. Past Medical History Past Medical History: Diabetes Mellitus, Hypertension History of Any Multi-Drug Resistant Organisms: None Reported Past Surgical History: No Surgical Hx Reported Past Psychological History: No Psychological Hx Reported Smoking Status: Former smoker Past Alcohol Use History: None Reported Past Drug Use History: None Reported General Exam Limitations: no limitations General appearance: alert, in no apparent distress Head exam: Present: atraumatic, normocephalic, normal inspection Eye exam: Present: normal appearance, PERRL, EOMI. Absent: scleral icterus, conjunctival injection, periorbital swelling ENT exam: Present: normal exam, mucous membranes moist Neck exam: Present: normal inspection. Absent: tenderness, meningismus, lymphadenopathy Respiratory exam: Present: normal lung sounds bilaterally. Absent: respiratory distress, wheezes, rales, rhonchi, stridor Cardiovascular Exam: Present: regular rate, normal rhythm, normal heart sounds. Absent: systolic murmur, diastolic murmur, rubs, gallop, clicks GI/Abdominal exam: Present: soft, normal bowel sounds. Absent: distended, tenderness, guarding, rebound, rigid Extremities exam: Present: normal inspection, full ROM, normal capillary refill. Absent: tenderness, pedal edema, joint swelling, calf tenderness Back exam: Present: normal inspection Neurological exam: Present: alert, oriented X3, CN II-XII intact Psychiatric exam: Present: normal affect, normal mood Skin exam: Present: warm, dry, intact, normal color. Absent: rash Course Vital Signs 12/10/20 12/10/20 05:27 07:00 Temperature 98.5 F Pulse Rate 73 78 Respiratory 22 16 Rate Blood Pressure 149/75 149/91 O2 Sat by Pulse 98 97 Oximetry - Reevaluation(s) Reevaluation #1: Medical record is reviewed ER visit from earlier is reviewed including imaging and labs Patient has no improvement here in the ER Spoke patient regarding findings, questions answered Medical Decision Making - Medical Decision Making 89 female persistent nausea vomiting abdominal pain. Likely underlying colitis. Patient will be admitted for symptomatic therapy as she fell outpatient treatment at home - Lab Data Result diagrams: 12/10/20 05:48 12/10/20 05:48 Lab Results 12/10/20 12/10/20 12/10/20 Range/Units 05:48 05:48 05:48 WBC 8.2 (3.8-10.6) k/uL RBC 3.99 (3.80-5.40) m/uL Hgb 11.9 (11.4-16.0) gm/dL Hct 36.5 (34.0-46.0) % MCV 91.4 (80.0-100.0) fL MCH 29.9 (25.0-35.0) pg MCHC 32.7 (31.0-37.0) g/dL RDW 13.4 (11.5-15.5) % Plt Count 230 (150-450) k/uL MPV 7.5 Neutrophils % 77 % Lymphocytes % 13 % Monocytes % 5 % Eosinophils % 3 % Basophils % 0 % Neutrophils # 6.3 (1.3-7.7) k/uL Lymphocytes # 1.1 (1.0-4.8) k/uL Monocytes # 0.4 (0-1.0) k/uL Eosinophils # 0.2 (0-0.7) k/uL Basophils # 0.0 (0-0.2) k/uL Sodium 133 L (137-145) mmol/L Potassium 3.7 (3.5-5.1) mmol/L Chloride 104 (98-107) mmol/L Carbon Dioxide 22 (22-30) mmol/L Anion Gap 7 mmol/L BUN 17 (7-17) mg/dL Creatinine 0.53 (0.52-1.04) mg/dL Est GFR (CKD-EPI)AfAm >90 (>60 ml/min/1.73 sqM) Est GFR (CKD-EPI)NonAf 85 (>60 ml/min/1.73 sqM) Glucose 240 H (74-99) mg/dL Plasma Lactic Acid Fercho 1.0 (0.7-2.0) mmol/L Calcium 9.0 (8.4-10.2) mg/dL Total Bilirubin 1.3 (0.2-1.3) mg/dL AST 16 (14-36) U/L ALT 11 (4-34) U/L Alkaline Phosphatase 61 (38-126) U/L Total Protein 6.4 (6.3-8.2) g/dL Albumin 3.5 (3.5-5.0) g/dL Amylase <30 L (30-110) U/L Lipase 23 (23-300) U/L Disposition Clinical Impression: Abdominal pain, Diarrhea, Gastroenteritis, Abdominal colic Disposition: ADMITTED IP TO THIS HOSP Condition: Good Is patient prescribed a controlled substance at d/c from ED?: No
[2020-12-10 05:56] LABS: Basophils % (A) 0 %; Eosinophils # (A) 0.2 k/uL (0-0.7); Eosinophils % (A) 3 %; HCT 36.5 % (34.0-46.0); HGB 11.9 gm/dL (11.4-16.0); Lymphocytes # (A) 1.1 k/uL (1.0-4.8); Lymphocytes % (A) 13 %; MCH 29.9 pg (25.0-35.0); MCHC 32.7 g/dL (31.0-37.0); MCV 91.4 fL (80.0-100.0); Mean Platelet Volume 7.5; Monocytes # (A) 0.4 k/uL (0-1.0); Monocytes % (A) 5 %; Neutrophils # (A) 6.3 k/uL (1.3-7.7); Neutrophils % (A) 77 %; Platelet Count 230 k/uL (150-450); RBC 3.99 m/uL (3.80-5.40); RDW 13.4 % (11.5-15.5); WBC 8.2 k/uL (3.8-10.6)
[2020-12-10 06:06] LABS: ALT 11 U/L (4-34); AST 16 U/L (14-36); African American GFR (CKD) >90 (>60 ml/min/1.73 sqM); Albumin 3.5 g/dL (3.5-5.0); Alkaline Phosphatase 61 U/L (38-126); Amylase <30 U/L (30-110); Anion Gap 7 mmol/L; Blood Urea Nitrogen 17 mg/dL (7-17); Carbon Dioxide 22 mmol/L (22-30); Chloride 104 mmol/L (98-107); Glucose 240 mg/dL (74-99); Lipase 23 U/L (23-300); Non-African American GFR(CKD) 85 (>60 ml/min/1.73 sqM); Potassium 3.7 mmol/L (3.5-5.1); Sodium 133 mmol/L (137-145); Total Bilirubin 1.3 mg/dL (0.2-1.3); Total Protein 6.4 g/dL (6.3-8.2)
[2020-12-10] MEDS ORDERED: MORPHINE SULFATE 4 MG/ML SYRINGE IV PRN (06:26)
[2020-12-10] MEDS ORDERED: ONDANSETRON 4 MG/2 ML VIAL IVP PRN (06:26)
--- NOTE | 2020-12-10 07:16 | XR ---
EXAM: XR Abdomen, 2 Views CLINICAL HISTORY: ITS.REASON XR Reason: abdominal pain TECHNIQUE: Frontal view of the abdomen/pelvis with upright view of the abdomen. COMPARISON: No relevant prior studies available. FINDINGS/IMPRESSION: Nonobstructed bowel gas pattern. Suspect, small pleural effusions. No large volume free air however, only a single supine image was submitted. Consider CT scan of the abdomen and pelvis collection. Severe degenerative change of the spine with dextroconvex scoliosis of the thoracolumbar junction. Diffuse osseous demineralization. Contrast noted within the urinary bladder.
[2020-12-10 08:56] VITALS: BP 151/67; PULSE 72; RESP 18; TEMP 98.4
[2020-12-10] MEDS ORDERED: KETOROLAC 15 MG/ML 1 ML VIAL IVP PRN (10:44)
[2020-12-10 11:08] LABS: Glucose,Whole Blood 194 mg/dL (75-99)
[2020-12-10] MEDS ORDERED: SODIUM CHLORIDE 0.9% 1,000 ML IV SCH (14:15)
--- NOTE | 2020-12-10 15:04 | P.DS ---
Providers Date of admission: 12/10/20 06:26 Attending physician: Kellen Kevin Primary care physician: Nixon Juarez [facility] Course: Patient is admitted for nausea vomiting diarrhea appears to have severe enteritis, food poisoning doesn't appear to have any dysentery clinically didn't have any more diarrhea because of which no further testing is being done and patient will be discharged today. Please refer to my history of present illness for further details Patient Condition at Discharge: Good Plan - Discharge Summary New Discharge Prescriptions: Continue lisinopriL 30 mg PO DAILY glipiZIDE [Glucotrol XL] 2.5 mg PO DAILY amLODIPine [Norvasc] 5 mg PO DAILY Vit C/E/Zn/Coppr/Lutein/Zeaxan [Preservision Areds 2 Softgel] 1 cap PO BID Aspirin EC [Ecotrin Low Dose] 81 mg PO BID Discontinued ALPRAZolam [Xanax] 0.25 mg PO DAILY PRN PRN Reason: Anxiety Discharge Medication List amLODIPine [Norvasc] 5 mg PO DAILY 04/16/19 [History] glipiZIDE [Glucotrol XL] 2.5 mg PO DAILY 04/16/19 [History] lisinopriL 30 mg PO DAILY 04/16/19 [History] Aspirin EC [Ecotrin Low Dose] 81 mg PO BID 12/09/20 [History] Vit C/E/Zn/Coppr/Lutein/Zeaxan [Preservision Areds 2 Softgel] 1 cap PO BID 12/09/20 [History] Follow up Appointment(s)/Referral(s): Kal Juarez MD [Primary Care Provider] - 3 Days
[2020-12-10 16:26] LABS: Glucose,Whole Blood 216 mg/dL (75-99)
[2020-12-10] MEDS ORDERED: VIT A,C & E-LUTEIN-MINERALS 1 EACH TAB PO SCH (21:00)
[2020-12-10] MEDS ORDERED: ASPIRIN 81 MG PO SCH (21:00)
[2020-12-11] MEDS ORDERED: PANTOPRAZOLE 40 MG/10 ML VIAL IV SCH (09:00)
[2020-12-11] MEDS ORDERED: amLODIPine 5 MG TAB PO SCH (09:00)
[2020-12-11] MEDS ORDERED: lisinopriL 10 MG TAB PO SCH (09:00)
--- NOTE | 2020-12-13 08:03 | P.HPIM ---
History of Present Illness Patient is a pleasant 89-year-old female came in events of severe Abdominal pain along with nausea vomiting which started having nausea nausea vomiting multiple episodes of diarrhea is watery like diarrhea although it was noted by the nursing staff that today morning patient was having mucousy diarrhea. Patient ate cheesecake from [employer] since then patient started having nausea vomiting abdominal pain and diarrhea she had severe crampy abdominal pain. Patient's grandson had similar symptoms after he ate the the same cheesecake. Patient denied any fever chills patient had only 1 episode since morning. She was receiving IV fluids and patient had serum sodium of 133. Patient feels much better now no nausea or vomiting now Review of Systems REVIEW OF SYSTEMS: CONSTITUTIONAL: No fever, no malaise, no fatigue. HEENT: No recent visual problems or hearing problems. Denied any sore throat. CARDIOVASCULAR: No chest pain, orthopnea, PND, no palpitations, no syncope. PULMONARY: No shortness of breath, no cough, no hemoptysis. GASTROINTESTINAL: As mentioned in HPI NEUROLOGICAL: No headaches, no weakness, no numbness. HEMATOLOGICAL: Denies any bleeding or petechiae. GENITOURINARY: Denies any burning micturition, frequency, or urgency. MUSCULOSKELETAL/RHEUMATOLOGICAL: Denies any joint pain, swelling, or any muscle pain. ENDOCRINE: Denies any polyuria or polydipsia. The rest of the 14-point review of systems is negative. Past Medical History Past Medical History: Diabetes Mellitus, Hypertension History of Any Multi-Drug Resistant Organisms: None Reported Past Surgical History: No Surgical Hx Reported Past Psychological History: No Psychological Hx Reported Smoking Status: Former smoker Past Alcohol Use History: None Reported Past Drug Use History: None Reported Medications and Allergies Home Medications Medication Instructions Recorded Confirmed Type ALPRAZolam [Xanax] 0.25 mg PO DAILY PRN 04/16/19 12/10/20 History amLODIPine [Norvasc] 5 mg PO DAILY 04/16/19 12/10/20 History glipiZIDE [Glucotrol XL] 2.5 mg PO DAILY 04/16/19 12/10/20 History lisinopriL 30 mg PO DAILY 04/16/19 12/10/20 History Aspirin EC [Ecotrin Low Dose] 81 mg PO BID 12/09/20 12/10/20 History Vit C/E/Zn/Coppr/Lutein/Zeaxan 1 cap PO BID 12/09/20 12/10/20 History [Preservision Areds 2 Softgel] Allergies Allergy/AdvReac Type Severity Reaction Status Date / Time No Known Allergies Allergy Verified 12/10/20 06:35 Physical Exam Vitals: Vital Signs Temp Pulse Pulse Resp BP BP Pulse Ox 12/10/20 08:30 98.4 F 72 18 151/67 98 12/10/20 07:00 78 16 149/91 97 12/10/20 05:27 98.5 F 73 22 149/75 98 Intake and Output 12/09/20 12/10/20 12/10/20 22:59 06:59 14:59 Output Total 1 Balance -1 Output: Stool 1 Other: Voiding Method Toilet # Voids 1 Weight 53.524 kg PHYSICAL EXAMINATION: GENERAL: The patient is alert and oriented x3, not in any acute distress. Well developed, well nourished. HEENT: Pupils are round and equally reacting to light. EOMI. No scleral icterus. No conjunctival pallor. Normocephalic, atraumatic. No pharyngeal erythema. No t hyromegaly. CARDIOVASCULAR: S1 and S2 present. No murmurs, rubs, or gallops. PULMONARY: Chest is clear to auscultation, no wheezing or crackles. ABDOMEN: Soft, nontender, nondistended, normoactive bowel sounds. No palpable organomegaly. MUSCULOSKELETAL: No joint swelling or deformity. EXTREMITIES: No cyanosis, clubbing, or pedal edema. NEUROLOGICAL: Gross neurological examination did not reveal any focal deficits. SKIN: No rashes. Results CBC & Chem 7: 12/10/20 05:48 12/10/20 05:48 Labs: Abnormal Lab Results - Last 24 Hours (Table) 12/10/20 12/10/20 Range/Units 05:48 11:06 Sodium 133 L (137-145) mmol/L Glucose 240 H (74-99) mg/dL POC Glucose (mg/dL) 194 H (75-99) mg/dL Amylase <30 L (30-110) U/L Assessment and Plan Plan: -Gastroenteritis: He appears to be secondary to food poisoning considering that the patient has mucousy diarrhea she continues to have this diarrhea will obtain some stool studies including C. diff if she doesn't have any diarrhea patient will be discharged today if she has diarrhea patient need antibiotics treating for organisms like Salmonella or shigella. -Hypervolemic hyponatremia: Patient the will be started on IV fluids. -Type 2 diabetes mellitus - hypertension -DVT prophylaxis: Early ambulation For above-mentioned chronic medical problems patient will be resumed on appropriate home medications.
== END 2020-12-10 16:33 | disposition home or self-care (01) ==
LOC: EC 05:25 → 1SOBS 06:26
PROVIDERS: ADMIT Hospitalist; ATTEND Hospitalist
DX: K52.9 Noninfective gastroenteritis and colitis, unspecified (principal); E87.70 Fluid overload, unspecified; E87.1 Hypo-osmolality and hyponatremia; E11.9 Type 2 diabetes mellitus without complications; I10 Essential (primary) hypertension; Z79.899 Other long term (current) drug therapy; Z79.84 Long term (current) use of oral hypoglycemic drugs; Z79.82 Long term (current) use of aspirin; Z87.891 Personal history of nicotine dependence
CPT/HCPCS: 96375 ×2; 96361; 96374; 99285; 80053; 82150; 83605; 83690; 85025; 74018; G0378; J2270; J2405; C9113

== ENCOUNTER 2021-03-22 15:20 | Inpatient (IN) | payer MEDICARE, BC ==
[2021-03-22] MEDS ORDERED: SODIUM CHLORIDE 0.9% 1,000 ML IV STA (15:26)
[2021-03-22] MEDS ORDERED: SODIUM CHLORIDE 0.9% 500 ML 500 ML IV STA (15:26)
--- NOTE | 2021-03-22 15:35 | ED ---
SOB HPI - General Stated Complaint: SOB Time Seen by Provider: 03/22/21 15:20 Source: patient, EMS, RN notes reviewed, old records reviewed Mode of arrival: EMS - History of Present Illness Initial Comments: This is a 89-year-old female with history of hypertension history of diabetes who was brought in by EMS because of cough shortness of breath and dyspnea. Per reports she was diagnosed with COVID-19 3 days ago. She had symptoms predated this by a couple days. She apparently does live at home and family is who called EMS. She denies any chest pain nausea vomiting she does admit to decreased oral intake. MD Complaint: shortness of breath, cough - Related Data Home Medications Medication Instructions Recorded Confirmed amLODIPine [Norvasc] 5 mg PO DAILY 04/16/19 03/22/21 glipiZIDE [Glucotrol XL] 2.5 mg PO DAILY 04/16/19 03/22/21 lisinopriL 30 mg PO DAILY 04/16/19 03/22/21 Aspirin EC [Ecotrin Low Dose] 81 mg PO DAILY 12/09/20 03/22/21 Allergies Allergy/AdvReac Type Severity Reaction Status Date / Time No Known Allergies Allergy Verified 03/22/21 17:09 Review of Systems ROS Statement: Those systems with pertinent positive or pertinent negative responses have been documented in the HPI. ROS Other: All systems not noted in ROS Statement are negative. Past Medical History Past Medical History: Diabetes Mellitus, Hypertension History of Any Multi-Drug Resistant Organisms: None Reported Past Surgical History: No Surgical Hx Reported Past Psychological History: No Psychological Hx Reported Smoking Status: Former smoker Past Alcohol Use History: None Reported Past Drug Use History: None Reported General Exam - General Exam Comments Initial Comments: Physical well-developed asthenic appearing female who is awake alert oriented 3 General appearance: alert, in no apparent distress Head exam: Present: atraumatic, normocephalic, normal inspection Eye exam: Present: normal appearance, PERRL, EOMI. Absent: scleral icterus, conjunctival injection, periorbital swelling ENT exam: Present: mucous membranes dry Neck exam: Present: normal inspection, full ROM, other. Absent: tenderness, meningismus, lymphadenopathy Respiratory exam: Present: decreased breath sounds. Absent: respiratory distress, wheezes, rales, rhonchi, stridor Cardiovascular Exam: Present: regular rate, normal rhythm, normal heart sounds. Absent: systolic murmur, diastolic murmur, rubs, gallop, clicks GI/Abdominal exam: Present: soft, normal bowel sounds. Absent: distended, tenderness, guarding, rebound, rigid Extremities exam: Present: normal inspection, full ROM, normal capillary refill. Absent: tenderness, pedal edema, joint swelling, calf tenderness Back exam: Present: normal inspection Neurological exam: Present: alert, oriented X3, CN II-XII intact Psychiatric exam: Present: normal affect, normal mood Skin exam: Present: warm, dry, intact, normal color, other (She does feel warm and febrile). Absent: rash Course Vital Signs 03/22/21 03/22/21 03/22/21 15:31 15:34 18:34 Temperature 101.1 F H 100.3 F H Pulse Rate 75 103 H Respiratory 22 22 18 Rate Blood Pressure 160/83 149/69 O2 Sat by Pulse 95 98 Oximetry Medical Decision Making - Medical Decision Making I did discuss findings with the patient she was noted to be desaturating was talking down to about 90-91 patient will be admitted the case was discussed with Dr. Cummins - Lab Data Result diagrams: 03/22/21 15:31 03/22/21 15:31 Lab Results 03/22/21 03/22/21 03/22/21 Range/Units 15:31 15:31 15:31 WBC 4.6 (3.8-10.6) k/uL RBC 3.93 (3.80-5.40) m/uL Hgb 12.3 (11.4-16.0) gm/dL Hct 35.6 (34.0-46.0) % MCV 90.5 (80.0-100.0) fL MCH 31.4 (25.0-35.0) pg MCHC 34.7 (31.0-37.0) g/dL RDW 13.2 (11.5-15.5) % Plt Count 186 (150-450) k/uL MPV 7.2 Neutrophils % 80 % Lymphocytes % 13 % Monocytes % 5 % Eosinophils % 1 % Basophils % 1 % Neutrophils # 3.7 (1.3-7.7) k/uL Lymphocytes # 0.6 L (1.0-4.8) k/uL Monocytes # 0.2 (0-1.0) k/uL Eosinophils # 0.0 (0-0.7) k/uL Basophils # 0.0 (0-0.2) k/uL PT 10.8 (9.0-12.0) sec INR 1.0 (<1.2) APTT 25.9 (22.0-30.0) sec D-Dimer 0.67 H (<0.60) mg/L FEU Sodium 133 L (137-145) mmol/L Potassium 3.7 (3.5-5.1) mmol/L Chloride 98 (98-107) mmol/L Carbon Dioxide 25 (22-30) mmol/L Anion Gap 10 mmol/L BUN 27 H (7-17) mg/dL Creatinine 0.56 (0.52-1.04) mg/dL Est GFR (CKD-EPI)AfAm >90 (>60 ml/min/1.73 sqM) Est GFR (CKD-EPI)NonAf 83 (>60 ml/min/1.73 sqM) Glucose 169 H (74-99) mg/dL Plasma Lactic Acid Fercho (0.7-2.0) mmol/L Calcium 8.9 (8.4-10.2) mg/dL Magnesium 2.0 (1.6-2.3) mg/dL Total Bilirubin 1.0 (0.2-1.3) mg/dL AST 27 (14-36) U/L ALT 13 (4-34) U/L Alkaline Phosphatase 62 (38-126) U/L Creatine Kinase 67 (30-135) U/L Troponin I (0.000-0.034) ng/mL NT-Pro-B Natriuret Pep pg/mL Total Protein 7.1 (6.3-8.2) g/dL Albumin 4.1 (3.5-5.0) g/dL Urine Color Urine Appearance (Clear) Urine pH (5.0-8.0) Ur Specific Cerulean (1.001-1.035) Urine Protein (Negative) Urine Glucose (UA) (Negative) Urine Ketones (Negative) Urine Blood (Negative) Urine Nitrite (Negative) Urine Bilirubin (Negative) Urine Urobilinogen (<2.0) mg/dL Ur Leukocyte Esterase (Negative) Urine RBC (0-5) /hpf Urine WBC (0-5) /hpf Ur Squamous Epith Cells (0-4) /hpf Amorphous Sediment (None) /hpf Urine Bacteria (None) /hpf Urine Mucus (None) /hpf 03/22/21 03/22/21 03/22/21 Range/Units 15:31 15:31 15:34 WBC (3.8-10.6) k/uL RBC (3.80-5.40) m/uL Hgb (11.4-16.0) gm/dL Hct (34.0-46.0) % MCV (80.0-100.0) fL MCH (25.0-35.0) pg MCHC (31.0-37.0) g/dL RDW (11.5-15.5) % Plt Count (150-450) k/uL MPV Neutrophils % % Lymphocytes % % Monocytes % % Eosinophils % % Basophils % % Neutrophils # (1.3-7.7) k/uL Lymphocytes # (1.0-4.8) k/uL Monocytes # (0-1.0) k/uL Eosinophils # (0-0.7) k/uL Basophils # (0-0.2) k/uL PT (9.0-12.0) sec INR (<1.2) APTT (22.0-30.0) sec D-Dimer (<0.60) mg/L FEU Sodium (137-145) mmol/L Potassium (3.5-5.1) mmol/L Chloride (98-107) mmol/L Carbon Dioxide (22-30) mmol/L Anion Gap mmol/L BUN (7-17) mg/dL Creatinine (0.52-1.04) mg/dL Est GFR (CKD-EPI)AfAm (>60 ml/min/1.73 sqM) Est GFR (CKD-EPI)NonAf (>60 ml/min/1.73 sqM) Glucose (74-99) mg/dL Plasma Lactic Acid Fercho 1.5 (0.7-2.0) mmol/L Calcium (8.4-10.2) mg/dL Magnesium (1.6-2.3) mg/dL Total Bilirubin (0.2-1.3) mg/dL AST (14-36) U/L ALT (4-34) U/L Alkaline Phosphatase (38-126) U/L Creatine Kinase (30-135) U/L Troponin I <0.012 (0.000-0.034) ng/mL NT-Pro-B Natriuret Pep 627 pg/mL Total Protein (6.3-8.2) g/dL Albumin (3.5-5.0) g/dL Urine Color Urine Appearance (Clear) Urine pH (5.0-8.0) Ur Specific Cerulean (1.001-1.035) Urine Protein (Negative) Urine Glucose (UA) (Negative) Urine Ketones (Negative) Urine Blood (Negative) Urine Nitrite (Negative) Urine Bilirubin (Negative) Urine Urobilinogen (<2.0) mg/dL Ur Leukocyte Esterase (Negative) Urine RBC (0-5) /hpf Urine WBC (0-5) /hpf Ur Squamous Epith Cells (0-4) /hpf Amorphous Sediment (None) /hpf Urine Bacteria (None) /hpf Urine Mucus (None) /hpf 03/22/21 Range/Units 18:37 WBC (3.8-10.6) k/uL RBC (3.80-5.40) m/uL Hgb (11.4-16.0) gm/dL Hct (34.0-46.0) % MCV (80.0-100.0) fL MCH (25.0-35.0) pg MCHC (31.0-37.0) g/dL RDW (11.5-15.5) % Plt Count (150-450) k/uL MPV Neutrophils % % Lymphocytes % % Monocytes % % Eosinophils % % Basophils % % Neutrophils # (1.3-7.7) k/uL Lymphocytes # (1.0-4.8) k/uL Monocytes # (0-1.0) k/uL Eosinophils # (0-0.7) k/uL Basophils # (0-0.2) k/uL PT (9.0-12.0) sec INR (<1.2) APTT (22.0-30.0) sec D-Dimer (<0.60) mg/L FEU Sodium (137-145) mmol/L Potassium (3.5-5.1) mmol/L Chloride (98-107) mmol/L Carbon Dioxide (22-30) mmol/L Anion Gap mmol/L BUN (7-17) mg/dL Creatinine (0.52-1.04) mg/dL Est GFR (CKD-EPI)AfAm (>60 ml/min/1.73 sqM) Est GFR (CKD-EPI)NonAf (>60 ml/min/1.73 sqM) Glucose (74-99) mg/dL Plasma Lactic Acid Fercho (0.7-2.0) mmol/L Calcium (8.4-10.2) mg/dL Magnesium (1.6-2.3) mg/dL Total Bilirubin (0.2-1.3) mg/dL AST (14-36) U/L ALT (4-34) U/L Alkaline Phosphatase (38-126) U/L Creatine Kinase (30-135) U/L Troponin I (0.000-0.034) ng/mL NT-Pro-B Natriuret Pep pg/mL Total Protein (6.3-8.2) g/dL Albumin (3.5-5.0) g/dL Urine Color Yellow Urine Appearance Cloudy H (Clear) Urine pH 5.5 (5.0-8.0) Ur Specific Cerulean 1.033 (1.001-1.035) Urine Protein 1+ H (Negative) Urine Glucose (UA) Negative (Negative) Urine Ketones 1+ H (Negative) Urine Blood Negative (Negative) Urine Nitrite Negative (Negative) Urine Bilirubin Negative (Negative) Urine Urobilinogen 2.0 (<2.0) mg/dL Ur Leukocyte Esterase Small H (Negative) Urine RBC 3 (0-5) /hpf Urine WBC 17 H (0-5) /hpf Ur Squamous Epith Cells <1 (0-4) /hpf Amorphous Sediment Occasional H (None) /hpf Urine Bacteria Rare H (None) /hpf Urine Mucus Rare H (None) /hpf - EKG Data -: EKG Interpreted by Ok EKG shows normal: sinus rhythm EKG Comments: Sinus rhythm first-degree AV block rate 66 VA interval 224 QRS 140 daily since QTC 420/440 right bundle-branch block pattern - Radiology Data Radiology results: report reviewed (Imaging reviewed no PE evidence of bilateral interstitial infiltrates), image reviewed Disposition Clinical Impression: Pneumonia due to COVID-19 virus, Febrile illness, acute, Failure to thrive in adult, Dehydration, Viral syndrome Disposition: ADMITTED IP TO THIS [facility] Condition: Fair Referrals: Kal Juarez MD [Primary Care Provider] - 1-2 days
[2021-03-22 15:41] LABS: Basophils % (A) 1 %; Eosinophils % (A) 1 %; HCT 35.6 % (34.0-46.0); HGB 12.3 gm/dL (11.4-16.0); Lymphocytes # (A) 0.6 k/uL (1.0-4.8); Lymphocytes % (A) 13 %; MCH 31.4 pg (25.0-35.0); MCHC 34.7 g/dL (31.0-37.0); MCV 90.5 fL (80.0-100.0); Mean Platelet Volume 7.2; Monocytes # (A) 0.2 k/uL (0-1.0); Monocytes % (A) 5 %; Neutrophils # (A) 3.7 k/uL (1.3-7.7); Neutrophils % (A) 80 %; Platelet Count 186 k/uL (150-450); RBC 3.93 m/uL (3.80-5.40); RDW 13.2 % (11.5-15.5); WBC 4.6 k/uL (3.8-10.6)
[2021-03-22 15:52] LABS: ALT 13 U/L (4-34); AST 27 U/L (14-36); African American GFR (CKD) >90 (>60 ml/min/1.73 sqM); Albumin 4.1 g/dL (3.5-5.0); Alkaline Phosphatase 62 U/L (38-126); Anion Gap 10 mmol/L; Blood Urea Nitrogen 27 mg/dL (7-17); Calcium 8.9 mg/dL (8.4-10.2); Carbon Dioxide 25 mmol/L (22-30); Chloride 98 mmol/L (98-107); Creatine Kinase 67 U/L (30-135); Glucose 169 mg/dL (74-99); Non-African American GFR(CKD) 83 (>60 ml/min/1.73 sqM); Potassium 3.7 mmol/L (3.5-5.1); Sodium 133 mmol/L (137-145); Total Protein 7.1 g/dL (6.3-8.2)
[2021-03-22 15:54] LABS: Partial Thromboplastin Time 25.9 sec (22.0-30.0); Prothrombin Time 10.8 sec (9.0-12.0)
[2021-03-22 16:11] LABS: D-Dimer 0.67 mg/L FEU (<0.60)
--- NOTE | 2021-03-22 17:35 | XR ---
EXAMINATION TYPE: XR chest 2V DATE OF EXAM: 03/22/2021 COMPARISON: 04/16/2019 HISTORY: Vehicle the breathing TECHNIQUE: FINDINGS: There is some mild interstitial infiltrates in the mid and lower lung brooks. There is no o bvious heart failure. Thoracic aorta is atheromatous. There are no hilar masses. There are chest lead s. IMPRESSION: Interstitial fibrotic changes. No heart failure seen. Lung markings increased compared to old exam. There is probably some new mild infiltrate right midlung field compared to old exam.
--- NOTE | 2021-03-22 18:32 | CT ---
EXAMINATION TYPE: CT angio chest DATE OF EXAM: 03/22/2021 COMPARISON: None HISTORY: Elevated d-dimer. CT DLP: 211.6 mGycm Automated exposure control for dose reduction was used. CONTRAST: Performed with IV Contrast, patient injected with 100 mL of Isovue 370. Images obtained from the thoracic inlet to the diaphragm with IV contrast. There are 3-D post process ed images. There is some patchy peripheral pulmonary interstitial infiltrates. There is mild subsegmental atelec tasis at the lung bases. Heart size is normal. There is no pericardial effusion. There is no pleural effusion. Thoracic aorta is atheromatous. There are a few paratracheal lymph nodes up to 1 cm. There is enlarged right bronchial lymph nodes th at measures 2 cm. There is some spurring in the thoracic spine. There is no compression fracture. Upper abdominal soft tissues are intact. Ascending aorta measures 3.8 cm. There is no dissection. There is no evidence of filling defect in the pulmonary arteries. IMPRESSION: No evidence of pulmonary embolism. Patchy pulmonary infiltrates probably related to pulmonary fibrosi s and minimal pneumonia. No suspicious pulmonary mass. Enlarged right bronchial lymph node is probabl y inflammatory..
[2021-03-22] MEDS ORDERED: ACETAMINOPHEN TAB 500 MG TAB PO STA (18:36)
[2021-03-22 18:54] LABS: Amorphous Sediment,Urine Occasional /hpf; Appearance,Urine Cloudy (Clear); Bacteria,Urine Rare /hpf; Bilirubin,Urine Negative (Negative); Blood,Urine Negative (Negative); Color,Urine Yellow; Glucose,Urine (UA) Negative (Negative); Ketones,Urine 1+ (Negative); Leukocyte Esterase,Urine Small (Negative); Mucus,Urine Rare /hpf; Nitrite,Urine Negative (Negative); PH, Urine 5.5 (5.0-8.0); Protein,Urine 1+ (Negative); RBC,Urine 3 /hpf (0-5); Specific Gravity,Urine 1.033 (1.001-1.035); Squamous Epithelial Cell,Urine <1 /hpf (0-4); WBC,Urine 17 /hpf (0-5)
[2021-03-22] MEDS ORDERED: ACETAMINOPHEN TAB 325 MG TAB PO PRN (19:38)
[2021-03-22] MEDS ORDERED: NALOXONE 0.4 MG/ML 1 ML VIAL IV PRN (19:38)
[2021-03-22] MEDS ORDERED: ALBUTEROL HFA INHALER INHALATION SCH (20:00)
[2021-03-22] MEDS ORDERED: ALBUTEROL HFA INHALER INHALATION PRN (21:38)
[2021-03-22] MEDS: SODIUM CHLORIDE 0.9% 1,000 ML IV SCH (22:50)
--- NOTE | 2021-03-23 03:20 | P.HPIM ---
History of Present Illness H&P Date: 03/22/21 Chief Complaint: debility 89 year old female with DM and hypertension up until 1 week ago, patient is independent in her ADLS. she lives at her home, continues to drive. about 10 days ago , she had contact with confirmed covid patient (her grandson) , and later she started showing symptoms, she had symptoms for about a week now , and diagnosed with confirmed covid about 3-4 days ago . she reports symptoms of chills, loss of appetite, loss of smell and taste sensat ion , denies any chest pain or trouble breathing, denies any changes in her GI habits. however, over past few days , noticed worsening cough, and increase tiredness, and body aches. she is unable to move around and feels very week. today , she could not get off the toilet seat ,and had to call up on her son who lives with her to help her up. so she decided to come to the hospital for evaluation . her oxygenation seems to be within acceptable limits on room air, she had elevated D dimer, CTA showed no acute PE. rest of blood work , overall, unremarkable . vital signs stable patient admitted due to debility , and decrease PO intake , for observation overnight , and evaluation by PT . .patient uses a cane to ambulate at home. she continues to drive, and takes care of her ADLs Review of Systems Pertinent positives as noted in HPI. All other systems were reviewed and are negative Past Medical History Past Medical History: Diabetes Mellitus, Hypertension History of Any Multi-Drug Resistant Organisms: None Reported Past Surgical History: No Surgical Hx Reported Past Psychological History: No Psychological Hx Reported Smoking Status: Former smoker Past Alcohol Use History: None Reported Past Drug Use History: None Reported - Past Family History family Family Medical History: No Reported History Medications and Allergies Home Medications Medication Instructions Recorded Confirmed Type amLODIPine [Norvasc] 5 mg PO DAILY 04/16/19 03/22/21 History glipiZIDE [Glucotrol XL] 2.5 mg PO DAILY 04/16/19 03/22/21 History lisinopriL 30 mg PO DAILY 04/16/19 03/22/21 History Aspirin EC [Ecotrin Low Dose] 81 mg PO DAILY 12/09/20 03/22/21 History Allergies Allergy/AdvReac Type Severity Reaction Status Date / Time No Known Allergies Allergy Verified 03/22/21 17:09 Physical Exam Vitals: Vital Signs Temp Pulse Resp BP Pulse Ox 03/22/21 18:34 100.3 F H 103 H 18 149/69 98 03/22/21 15:34 22 03/22/21 15:31 101.1 F H 75 22 160/83 95 Intake and Output 03/22/21 03/22/21 03/22/21 06:59 14:59 22:59 Other: Weight 45.359 kg Constitutional: No acute distress, conversant, pleasant Eyes: Anicteric sclerae, moist conjunctiva, Pupils equal round reactive to light ENMT: NC/AT Oropharynx clear, no erythema, or exudates Neck: Supple, FROM, no masses, or JVD No carotid bruits No thyromegaly Lungs: Clear to auscultation Clear to percussion Normal respiratory effort, no accessory muscle use Cardiovascular: Heart regular in rate and rhythm, systolic murmurs, no gallops, or rubs No peripheral edema Abdominal: Soft Nontender, no guarding, rebound or rigidity Abdomen moving with respiration Normoactive bowel sounds No hepatomegaly, No splenomegaly No palpable mass No abdominal wall hernia noted Skin: Normal temperature, tone, texture, turgor No induration No subcutaneous nodules No rash, lesions No ulcers Extremities: No digital cyanosis No clubbing Pedal pulses intact and symmetrical Radial pulses intact and symmetrical No calf tenderness Psychiatric: Alert and oriented to person, place and time Appropriate affect fair judgement Neuro Muscles Strength 5/5 in all 4 extremities Sensation to light touch grossly present throughout Cranial nerves II-XII grossly intact No focal sensory deficits Lymphatics: no palpable cervical or supraclavicular , or inguinal lymph nodes Results CBC & Chem 7: 03/22/21 15:31 03/22/21 15:31 Labs: Abnormal Lab Results - Last 24 Hours (Table) 03/22/21 03/22/21 03/22/21 Range/Units 15:31 15:31 15:31 Lymphocytes # 0.6 L (1.0-4.8) k/uL D-Dimer 0.67 H (<0.60) mg/L FEU Sodium 133 L (137-145) mmol/L BUN 27 H (7-17) mg/dL Glucose 169 H (74-99) mg/dL Urine Appearance (Clear) Urine Protein (Negative) Urine Ketones (Negative) Ur Leukocyte Esterase (Negative) Urine WBC (0-5) /hpf Amorphous Sediment (None) /hpf Urine Bacteria (None) /hpf Urine Mucus (None) /hpf 03/22/21 Range/Units 18:37 Lymphocytes # (1.0-4.8) k/uL D-Dimer (<0.60) mg/L FEU Sodium (137-145) mmol/L BUN (7-17) mg/dL Glucose (74-99) mg/dL Urine Appearance Cloudy H (Clear) Urine Protein 1+ H (Negative) Urine Ketones 1+ H (Negative) Ur Leukocyte Esterase Small H (Negative) Urine WBC 17 H (0-5) /hpf Amorphous Sediment Occasional H (None) /hpf Urine Bacteria Rare H (None) /hpf Urine Mucus Rare H (None) /hpf Assessment and Plan Assessment: Covid infection debility generalized body aches plan supportive care IVF hydration , gentle lovenox daily CTA no acute PE evaluate oxygen requirement , supplemental oxygen as needed zinc, vitamin c and vitamin D consider BAM if she continues to be on room air pulmonary consult pain control check CK chronic conditions hypertension , resumehomemeds DM , insulin sliding scale , check A1C fall precaution s PT eval CODE STATUS:full code DVT prophylaxis: lovenox Discussed with: Patient, ER, RN Anticipated length of stay < than [address]: home A total of 65 minutes was spent on the care of this complex patient more than 50% of the time was spent in counseling and care coordination.
[2021-03-23] MEDS: SODIUM CHLORIDE 0.9% 1,000 ML IV SCH (04:18)
[2021-03-23 07:18] LABS: Glucose,Whole Blood 134 mg/dL (75-99)
[2021-03-23] MEDS: ENOXAPARIN 40 MG/0.4 ML SYRINGE SQ SCH (08:12)
[2021-03-23] MEDS: ASCORBIC ACID 500 MG TAB PO SCH (08:12)
[2021-03-23] MEDS: CHOLECALCIFEROL 25 MCG (1000 IU) TABLET PO SCH (08:12)
[2021-03-23] MEDS: amLODIPine 5 MG TAB PO SCH (08:12)
[2021-03-23] MEDS: lisinopriL 10 MG TAB PO SCH (08:12)
[2021-03-23] MEDS: ASPIRIN 81 MG PO SCH (08:12)
[2021-03-23] MEDS: ZINC SULFATE 220 MG CAP PO SCH (08:12)
[2021-03-23] MEDS: INSULIN ASPART (NovoLOG) 100 UNIT/ML VIAL SQ SCH ×4 (08:12→19:47)
[2021-03-23] MEDS: ALBUTEROL HFA INHALER INHALATION SCH ×4 (08:27→20:17)
[2021-03-23 09:24] LABS: Ferritin 225.4 ng/mL (10.0-291.0)
[2021-03-23 10:05] LABS: African American GFR (CKD) 99.5 (60.0-200.0); Anion Gap 9.3 mmol/L (4.00-12.00); Calcium 7.9 mg/dL (8.7-10.3); Carbon Dioxide 23.7 mmol/L (21.6-31.8); Non-African American GFR(CKD) 85.8 (60.0-200.0); Potassium 3.8 mmol/L (3.5-5.5)
[2021-03-23] MEDS ORDERED: VANCOMYCIN IV PER PHARMACY 1 EACH MISC MISCELLANE PRN (10:21)
[2021-03-23 11:47] LABS: Glucose,Whole Blood 136 mg/dL (75-99)
[2021-03-23] MEDS: VANCOMYCIN 1,000 MG in SODIUM CHLORIDE 0.9% 250 ML IVPB SCH (11:49)
--- NOTE | 2021-03-23 12:32 | P.PN ---
Subjective Progress Note Date: 03/23/21 Feels okay, no chest pain no abdominal pain no nausea no vomiting. He remains afebrile. Objective - Vital Signs Vital signs: Vital Signs Temp 98.3 F 03/23/21 07:00 Pulse 60 03/23/21 07:00 Resp 18 03/23/21 08:00 BP 134/53 03/23/21 07:00 Pulse Ox 93 L 03/23/21 07:00 Intake & Output 03/22/21 03/23/21 03/23/21 18:59 06:59 18:59 Intake Total 240 Balance 240 Weight 45.359 kg 45.359 kg 45.359 kg Intake: Oral 240 Other: Voiding Method Toilet # Voids 2 - Exam Constitutional: No acute distress Eyes: Anicteric sclerae ENMT: NC/AT Neck:Supple Lungs: Clear to auscultation, Clear to percussion, Normal respiratory effort, no accessory muscle use Cardiovascular: Heart regular in rate and rhythm, No murmurs, gallops, or rubs no peripheral edema Abdominal: Soft Nontender, non distended Skin: Normal temperature Extremities:No digital cyanosis No clubbing Psychiatric: Alert and oriented to person, place and time, Appropriate affect Intact judgement Neuro: Muscles Strength 5/5 in all 4 extremities, Sensation to light touch grossly present throughout, Cranial nerves II-XII grossly intact. No focal sensory deficits - Labs CBC & Chem 7: 03/22/21 15:31 03/23/21 05:30 Labs: Abnormal Lab Results - Last 24 Hours (Table) 03/22/21 03/22/21 03/22/21 Range/Units 15:31 15:31 15:31 Lymphocytes # 0.6 L (1.0-4.8) k/uL D-Dimer 0.67 H (<0.60) mg/L FEU Sodium 133 L (137-145) mmol/L BUN 27 H (7-17) mg/dL Creatinine (0.6-1.5) mg/dL BUN/Creatinine Ratio (12.00-20.00) Ratio Glucose 169 H (74-99) mg/dL POC Glucose (mg/dL) (75-99) mg/dL Calcium (8.7-10.3) mg/dL C-Reactive Protein (<1.0) mg/dL Procalcitonin (0.02-0.09) ng/mL Urine Appearance (Clear) Urine Protein (Negative) Urine Ketones (Negative) Ur Leukocyte Esterase (Negative) Urine WBC (0-5) /hpf Amorphous Sediment (None) /hpf Urine Bacteria (None) /hpf Urine Mucus (None) /hpf 03/22/21 03/22/21 03/23/21 Range/Units 15:31 18:37 05:30 Lymphocytes # (1.0-4.8) k/uL D-Dimer (<0.60) mg/L FEU Sodium (137-145) mmol/L BUN (7-17) mg/dL Creatinine 0.5 L (0.6-1.5) mg/dL BUN/Creatinine Ratio 40.00 H (12.00-20.00) Ratio Glucose 153 H (74-99) mg/dL POC Glucose (mg/dL) (75-99) mg/dL Calcium 7.9 L (8.7-10.3) mg/dL C-Reactive Protein 7.0 H (<1.0) mg/dL Procalcitonin (0.02-0.09) ng/mL Urine Appearance Cloudy H (Clear) Urine Protein 1+ H (Negative) Urine Ketones 1+ H (Negative) Ur Leukocyte Esterase Small H (Negative) Urine WBC 17 H (0-5) /hpf Amorphous Sediment Occasional H (None) /hpf Urine Bacteria Rare H (None) /hpf Urine Mucus Rare H (None) /hpf 03/23/21 03/23/21 03/23/21 Range/Units 05:30 07:15 11:45 Lymphocytes # (1.0-4.8) k/uL D-Dimer (<0.60) mg/L FEU Sodium (137-145) mmol/L BUN (7-17) mg/dL Creatinine (0.6-1.5) mg/dL BUN/Creatinine Ratio (12.00-20.00) Ratio Glucose (74-99) mg/dL POC Glucose (mg/dL) 134 H 136 H (75-99) mg/dL Calcium (8.7-10.3) mg/dL C-Reactive Protein (<1.0) mg/dL Procalcitonin 0.20 H (0.02-0.09) ng/mL Urine Appearance (Clear) Urine Protein (Negative) Urine Ketones (Negative) Ur Leukocyte Esterase (Negative) Urine WBC (0-5) /hpf Amorphous Sediment (None) /hpf Urine Bacteria (None) /hpf Urine Mucus (None) /hpf Microbiology - Last 24 Hours (Table) 03/22/21 15:31 Blood Culture Gram Stain - Preliminary Blood 03/22/21 15:31 Blood Culture - Final Blood 03/22/21 18:37 Urine Culture - Preliminary Urine,Voided Assessment and Plan Plan: 1. Covid 19 infection : Continue oxygen, bronchodilators, vitamin C, stop IV fluids. CTA negative for PE. Patient currently is on room air. Appreciate pulmonology input 2. debility generalized body aches supportive care 3. Gram-positive cocci bacteremia: Pending final cultures start vancomycin. chronic conditions hypertension , continue home medications DM 2 with hyperglycemia , insulin sliding scale fall precaution s PT eval CODE STATUS:full code DVT prophylaxis: lovenox Discussed with: Patient, nurse Anticipated discharge place: home in 1-2 days
--- NOTE | 2021-03-23 14:43 | P.CNPUL ---
History of Present Illness Consult date: 03/23/21 Requesting physician: Vianca Cruz Reason for consult: abnormal CXR/CT Chief complaint: Shortness of breath, cough, congestion History of present illness: This is a pleasant 89-year-old female patient with a history of DVTs mellitus, hypertension, former smoker. She states about 2 weeks ago she was exposed to COVID-19 by her grandson. She had been doing well until about a week ago and sh e had developed increasing shortness of breath cough and congestion. She did test +3-4 days prior to her arrival here to the emergency room. She is seen today in consultation on the regular medical floor. She is currently resting quite comfortably in bed. Maintaining O2 saturations in the 90s on room air. She's been afebrile. Hemodynamically stable. States she was hoping to go home. Preliminary blood culture revealed gram-positive bacilli. She's been initiated on vancomycin. White count 4.6. Hemoglobin 12.3. Lymphocytes 0.6. D-dimer 0.57. Sodium 135. Potassium 3.8. Creatinine 0.5. Glucose 153. LDH 201. Pro-calcitonin 0.20. Urine culture pending. CT angiogram ruled out pulmonary embolism. There is patchy pulmonary infiltrates suspect secondary to pulmonary fibrosis versus minimal pneumonia. She has been initiated on Lovenox, vitamin supplements. Review of Systems REVIEW OF SYSTEMS: CONSTITUTIONAL: Denies any recent significant weight loss or weight gain. EYES: Denies change in vision. EARS, NOSE, MOUTH, THROAT: Denies headaches, denies sore throat. CARDIOVASCULAR: Denies chest pain, palpitations or syncopal episodes. RESPIRATORY: Positive for shortness of breath, cough, congestion no hemoptysis. GASTROINTESTINAL: Denies change in appetite, denies abdominal pain GENITOURINARY: Denies hematuria, denies infections. MUSKULOSKELETAL: Denies pain, denies swelling. INTEGUMENTARY: Denies rash, denies eczema. NEUROLOGICAL: Denies recent memory loss, no recent seizure activity. PSYCHIATRIC: Denies anxiety, denies depression. HEMATOLOGIC/LYMPHATIC: Denies anemia, denies enlarged lymph nodes. Past Medical History Past Medical History: Diabetes Mellitus, Hypertension History of Any Multi-Drug Resistant Organisms: None Reported Past Surgical History: No Surgical Hx Reported Past Anesthesia/Blood Transfusion Reactions: No Reported Reaction Past Psychological History: No Psychological Hx Reported Smoking Status: Former smoker Past Alcohol Use History: None Reported Past Drug Use History: None Reported - Past Family History family Family Medical History: No Reported History Medications and Allergies Home Medications Medication Instructions Recorded Confirmed Type amLODIPine [Norvasc] 5 mg PO DAILY 04/16/19 03/22/21 History glipiZIDE [Glucotrol XL] 2.5 mg PO DAILY 04/16/19 03/22/21 History lisinopriL 30 mg PO DAILY 04/16/19 03/22/21 History Aspirin EC [Ecotrin Low Dose] 81 mg PO DAILY 12/09/20 03/22/21 History Allergies Allergy/AdvReac Type Severity Reaction Status Date / Time No Known Allergies Allergy Verified 03/22/21 17:09 Physical Exam Vitals: Vital Signs Temp Pulse Pulse Resp BP BP Pulse Ox 03/23/21 08:00 18 03/23/21 07:00 98.3 F 60 18 134/53 93 L 03/23/21 04:25 20 03/23/21 02:00 98.7 F 71 16 144/81 94 L 03/22/21 20:46 100.9 F H 95 18 108/57 95 03/22/21 20:05 98.1 F 58 L 20 124/47 97 03/22/21 18:34 100.3 F H 103 H 18 149/69 98 03/22/21 15:34 22 03/22/21 15:31 101.1 F H 75 22 160/83 95 Intake and Output 03/22/21 03/23/21 03/23/21 22:59 06:59 14:59 Intake Total 240 Balance 240 Intake: Oral 240 Other: Voiding Method Toilet # Voids 1 2 Weight 45.359 kg 45.359 kg GENERAL EXAM: Alert, pleasant 89-year-old female patient, on room air, comfortable in no apparent distress. HEAD: Normocephalic. EYES: Normal reaction of pupils, equal size. NOSE: Clear with pink turbinates. THROAT: No erythema or exudates. NECK: No masses, no JVD. CHEST: No chest wall deformity. LUNGS: Equal air entry with faint crackles in the posterior bases. CVS: S1 and S2 normal with no audible murmur, regular rhythm. ABDOMEN: No hepatosplenomegaly, normal bowel sounds, no guarding or rigidity. SPINE: No scoliosis or deformity SKIN: No rashes CENTRAL NERVOUS SYSTEM: No focal deficits, tone is normal in all 4 extremities. EXTREMITIES: There is no peripheral edema. No clubbing, no cyanosis. Peripheral pulses are intact. Results - Laboratory Findings CBC and BMP: 03/22/21 15:31 03/23/21 05:30 PT/INR, D-dimer PT 10.8 sec (9.0-12.0) 03/22/21 15:31 INR 1.0 (<1.2) 03/22/21 15:31 D-Dimer 0.57 mg/L FEU (<0.60) 03/23/21 05:30 Abnormal lab findings: Abnormal Labs 03/22/21 03/22/21 03/22/21 15:31 15:31 15:31 Lymphocytes # 0.6 L D-Dimer 0.67 H Sodium 133 L BUN 27 H Creatinine BUN/Creatinine Ratio Glucose 169 H POC Glucose (mg/dL) Calcium C-Reactive Protein Procalcitonin Urine Appearance Urine Protein Urine Ketones Ur Leukocyte Esterase Urine WBC Amorphous Sediment Urine Bacteria Urine Mucus 03/22/21 03/22/21 03/23/21 15:31 18:37 05:30 Lymphocytes # D-Dimer Sodium BUN Creatinine 0.5 L BUN/Creatinine Ratio 40.00 H Glucose 153 H POC Glucose (mg/dL) Calcium 7.9 L C-Reactive Protein 7.0 H Procalcitonin Urine Appearance Cloudy H Urine Protein 1+ H Urine Ketones 1+ H Ur Leukocyte Esterase Small H Urine WBC 17 H Amorphous Sediment Occasional H Urine Bacteria Rare H Urine Mucus Rare H 03/23/21 03/23/21 03/23/21 05:30 07:15 11:45 Lymphocytes # D-Dimer Sodium BUN Creatinine BUN/Creatinine Ratio Glucose POC Glucose (mg/dL) 134 H 136 H Calcium C-Reactive Protein Procalcitonin 0.20 H Urine Appearance Urine Protein Urine Ketones Ur Leukocyte Esterase Urine WBC Amorphous Sediment Urine Bacteria Urine Mucus - Diagnostic Findings Chest x-ray: image reviewed CT scan - chest: image reviewed Assessment and Plan Assessment: 1 COVID-19 infection symptoms outside the window for Remdesivir. On room air. 2 Bacteremia secondary to gram-positive bacilli 3 Generalized weakness secondary to above 4 Diabetes mellitus 5 Hypertension Plan: The patient was seen and evaluated by Dr. Vargas Chest x-ray and labs reviewed Continue Lovenox and vitamin supplement Add Decadron Await final blood cultures We will continue to follow I, the cosigning physician, performed a history & physical examination of the patient. Lungs sounds few scattered crackles. Maintaining good O2 saturations in the 90s on room air. I discussed the assessment and plan of care with my nurse practitioner, Penny Cardenas. I attest to the above auscultation as dictated by her. Time with Patient: Greater than 30
[2021-03-23 17:27] LABS: Glucose,Whole Blood 121 mg/dL (75-99)
[2021-03-23 19:47] LABS: Glucose,Whole Blood 139 mg/dL (75-99)
[2021-03-24 07:18] LABS: Glucose,Whole Blood 151 mg/dL (75-99)
[2021-03-24] MEDS: ALBUTEROL HFA INHALER INHALATION SCH ×4 (08:28→20:29)
[2021-03-24] MEDS: INSULIN ASPART (NovoLOG) 100 UNIT/ML VIAL SQ SCH ×4 (08:35→21:09)
[2021-03-24] MEDS: lisinopriL 10 MG TAB PO SCH (08:36)
[2021-03-24] MEDS: ZINC SULFATE 220 MG CAP PO SCH (08:36)
[2021-03-24] MEDS: ASPIRIN 81 MG PO SCH (08:36)
[2021-03-24] MEDS: ENOXAPARIN 40 MG/0.4 ML SYRINGE SQ SCH (08:36)
[2021-03-24] MEDS: amLODIPine 5 MG TAB PO SCH (08:36)
[2021-03-24] MEDS: ASCORBIC ACID 500 MG TAB PO SCH (08:36)
[2021-03-24] MEDS: CHOLECALCIFEROL 25 MCG (1000 IU) TABLET PO SCH (08:36)
[2021-03-24 09:39] LABS: Basophils # (A) 0.01 X 10*3/uL (0.00-0.10); Basophils % (A) 0.3 %; Eosinophils # (A) 0 X 10*3/uL (0.04-0.35); Eosinophils % (A) 0 %; HCT 31.3 % (37.2-46.3); Lymphocytes # (A) 0.72 X 10*3/uL (0.90-5.00); Lymphocytes % (A) 24.7 %; MCH 29.9 pg (27.0-32.0); MCHC 31.9 g/dL (32.0-37.0); MCV 93.7 fL (80.0-97.0); Mean Platelet Volume 10.3 fL (9.5-12.2); Monocytes # (A) 0.38 X 10*3/uL (0.20-1.00); Neutrophils # (A) 1.79 X 10*3/uL (1.80-7.70); Neutrophils % (A) 61.3 %; Platelet Count 156 X 10*3/uL (140-440); RBC 3.34 X 10*6/uL (4.10-5.20); RDW 13.6 % (11.5-14.5); WBC 2.92 X 10*3/uL (4.50-10.00)
[2021-03-24 09:47] LABS: African American GFR (CKD) 93.7 (60.0-200.0); Albumin 3.4 g/dL (3.80-4.90); Albumin/Globulin Ratio 1.79 (1.60-3.17); Anion Gap 9.9 mmol/L (4.00-12.00); Calcium 7.8 mg/dL (8.7-10.3); Carbon Dioxide 24.1 mmol/L (21.6-31.8); Globulin 1.9 g/dL (1.6-3.3); Non-African American GFR(CKD) 80.8 (60.0-200.0); Potassium 4.1 mmol/L (3.5-5.5); Total Bilirubin 0.5 mg/dL (0.2-1.2); Total Protein 5.3 g/dL (6.2-8.2)
[2021-03-24] MEDS: VANCOMYCIN 1,000 MG in SODIUM CHLORIDE 0.9% 250 ML IVPB SCH (09:53)
--- NOTE | 2021-03-24 11:37 | P.PN ---
Subjective Progress Note Date: 03/24/21 Feels better, no chest pain no abdominal pain. Temperature max 100.3 and no chest pain no abdominal pain. Remains on room air. Objective - Vital Signs Vital signs: Vital Signs Temp 98.4 F 03/24/21 07:00 Pulse 62 03/24/21 07:00 Resp 18 03/24/21 07:00 BP 157/67 03/24/21 07:00 Pulse Ox 90 L 03/24/21 07:00 Intake & Output 03/23/21 03/24/21 03/24/21 18:59 06:59 18:59 Intake Total 420 540 Balance 420 540 Weight 45.359 kg Intake: Oral 420 540 Other: Voiding Method Toilet # Voids 2 1 # Bowel Movements 1 2 - Exam Constitutional: No acute distress Eyes: Anicteric sclerae ENMT: NC/AT Neck:Supple Lungs: Clear to auscultation, Clear to percussion, Normal respiratory effort, no accessory muscle use Cardiovascular: Heart regular in rate and rhythm, No murmurs, gallops, or rubs no peripheral edema Abdominal: Soft Nontender, non distended, positive bowel sounds Skin: Normal temperature Extremities:No digital cyanosis No clubbing Psychiatric: Alert and oriented to person, place and time, Appropriate affect Intact judgement Neuro: Muscles Strength 5/5 in all 4 extremities, Sensation to light touch grossly present throughout, Cranial nerves II-XII grossly intact. No focal sensory deficits - Labs CBC & Chem 7: 03/24/21 04:43 03/24/21 04:43 Labs: Abnormal Lab Results - Last 24 Hours (Table) 03/23/21 03/23/21 03/23/21 Range/Units 11:45 17:25 19:46 WBC (4.50-10.00) X 10*3/uL RBC (4.10-5.20) X 10*6/uL Hgb (12.0-15.0) g/dL Hct (37.2-46.3) % MCHC (32.0-37.0) g/dL Neutrophils # (1.80-7.70) X 10*3/uL Lymphocytes # (0.90-5.00) X 10*3/uL Eosinophils # (0.04-0.35) X 10*3/uL BUN/Creatinine Ratio (12.00-20.00) Ratio Glucose (70-110) mg/dL POC Glucose (mg/dL) 136 H 121 H 139 H (75-99) mg/dL Calcium (8.7-10.3) mg/dL Total Protein (6.2-8.2) g/dL Albumin (3.80-4.90) g/dL 03/24/21 03/24/21 03/24/21 Range/Units 04:43 04:43 07:15 WBC 2.92 L (4.50-10.00) X 10*3/uL RBC 3.34 L (4.10-5.20) X 10*6/uL Hgb 10.0 L (12.0-15.0) g/dL Hct 31.3 L (37.2-46.3) % MCHC 31.9 L (32.0-37.0) g/dL Neutrophils # 1.79 L (1.80-7.70) X 10*3/uL Lymphocytes # 0.72 L (0.90-5.00) X 10*3/uL Eosinophils # 0 L (0.04-0.35) X 10*3/uL BUN/Creatinine Ratio 35.00 H (12.00-20.00) Ratio Glucose 125 H (70-110) mg/dL POC Glucose (mg/dL) 151 H (75-99) mg/dL Calcium 7.8 L (8.7-10.3) mg/dL Total Protein 5.3 L (6.2-8.2) g/dL Albumin 3.40 L (3.80-4.90) g/dL Microbiology - Last 24 Hours (Table) 03/22/21 15:31 Blood Culture Gram Stain - Final Blood Blood Culture - Final Bacillus species Not Anthracis 03/22/21 15:54 Blood Culture - Preliminary Blood No Growth after 24 hours Assessment and Plan Plan: 1. Covid 19 infection : Continue oxygen, bronchodilators, vitamin C, and dexamethasone. CTA negative for PE. Patient currently is on room air. Appreciate pulmonology input 2. debility generalized body aches supportive care 3. bacillus bacteremia: Pending final cultures continue vancomycin. chronic conditions hypertension , continue home medications DM 2 with hyperglycemia , insulin sliding scale fall precautions PT eval CODE STATUS:full code DVT prophylaxis: lovenox Discussed with: Patient, nurse Anticipated discharge place: home in 1-2 days
[2021-03-24 12:06] LABS: Glucose,Whole Blood 123 mg/dL (75-99)
--- NOTE | 2021-03-24 16:17 | P.PN ---
Subjective Progress Note Date: 03/24/21 Principal diagnosis: COVID-19 infection This is a pleasant 89-year-old female patient with a history of DVTs mellitus, hypertension, former smoker. She states about 2 weeks ago she was exposed to COVID-19 by her grandson. She had been doing well until about a week ago and she had developed increasing shortness of breath cough and congestion. She did test +3-4 days prior to her arrival here to the emergency room. She is seen today in consultation on the regular medical floor. She is currently resting quite comfortably in bed. Maintaining O2 saturations in the 90s on room air. She's been afebrile. Hemodynamically stable. States she was hoping to go home. Preliminary blood culture revealed gram-positive bacilli. She's been initiated on vancomycin. White count 4.6. Hemoglobin 12.3. Lymphocytes 0.6. D-dimer 0.57. Sodium 135. Potassium 3.8. Creatinine 0.5. Glucose 153. LDH 201. Pro-calcitonin 0.20. Urine culture pending. CT angiogram ruled out pulmonary embolism. There is patchy pulmonary infiltrates suspect secondary to pulmonary fibrosis versus minimal pneumonia. She has been initiated on Lovenox, vitamin supplements. The patient is seen sitting a second 2020 in follow-up on the regular medical floor. She is currently resting quite comfortably in bed. Awake and alert in no acute distress. Continue to maintain good O2 saturations in the 90s on room air. She's been afebrile. Hemodynamically stable. Blood culture positive for bacillus species not anthracis. Urine culture pending. Follow-up blood culture pending. White count 2.2. Hemoglobin 10.0. Sodium 138. Potassium 4.1. Creatinine 0.6. She remains on vancomycin. Continue Lovenox, vitamin supplements. Objective - Vital Signs Vital signs: Vital Signs Temp 99.3 F 03/24/21 13:57 Pulse 63 03/24/21 13:57 Resp 19 03/24/21 13:57 BP 127/57 03/24/21 13:57 Pulse Ox 93 L 03/24/21 13:57 Intake & Output 03/23/21 03/24/21 03/24/21 18:59 06:59 18:59 Intake Total 420 720 Balance 420 720 Weight 45.359 kg Intake: Oral 420 720 Other: Voiding Method Toilet # Voids 2 1 2 # Bowel Movements 1 2 - Exam GENERAL EXAM: Alert, pleasant 89-year-old female patient, on room air, comfortable in no apparent distress. HEAD: Normocephalic. EYES: Normal reaction of pupils, equal size. NOSE: Clear with pink turbinates. THROAT: No erythema or exudates. NECK: No masses, no JVD. CHEST: No chest wall deformity. LUNGS: Equal air entry with faint crackles in the posterior bases. CVS: S1 and S2 normal with no audible murmur, regular rhythm. ABDOMEN: No hepatosplenomegaly, normal bowel sounds, no guarding or rigidity. SPINE: No scoliosis or deformity SKIN: No rashes CENTRAL NERVOUS SYSTEM: No focal deficits, tone is normal in all 4 extremities. EXTREMITIES: There is no peripheral edema. No clubbing, no cyanosis. Pe ripheral pulses are intact. - Labs CBC & Chem 7: 03/24/21 04:43 03/24/21 04:43 Labs: Abnormal Lab Results - Last 24 Hours (Table) 03/23/21 03/23/21 03/24/21 Range/Units 17:25 19:46 04:43 WBC 2.92 L (4.50-10.00) X 10*3/uL RBC 3.34 L (4.10-5.20) X 10*6/uL Hgb 10.0 L (12.0-15.0) g/dL Hct 31.3 L (37.2-46.3) % MCHC 31.9 L (32.0-37.0) g/dL Neutrophils # 1.79 L (1.80-7.70) X 10*3/uL Lymphocytes # 0.72 L (0.90-5.00) X 10*3/uL Eosinophils # 0 L (0.04-0.35) X 10*3/uL BUN/Creatinine Ratio (12.00-20.00) Ratio Glucose (70-110) mg/dL POC Glucose (mg/dL) 121 H 139 H (75-99) mg/dL Calcium (8.7-10.3) mg/dL Total Protein (6.2-8.2) g/dL Albumin (3.80-4.90) g/dL 03/24/21 03/24/21 03/24/21 Range/Units 04:43 07:15 12:04 WBC (4.50-10.00) X 10*3/uL RBC (4.10-5.20) X 10*6/uL Hgb (12.0-15.0) g/dL Hct (37.2-46.3) % MCHC (32.0-37.0) g/dL Neutrophils # (1.80-7.70) X 10*3/uL Lymphocytes # (0.90-5.00) X 10*3/uL Eosinophils # (0.04-0.35) X 10*3/uL BUN/Creatinine Ratio 35.00 H (12.00-20.00) Ratio Glucose 125 H (70-110) mg/dL POC Glucose (mg/dL) 151 H 123 H (75-99) mg/dL Calcium 7.8 L (8.7-10.3) mg/dL Total Protein 5.3 L (6.2-8.2) g/dL Albumin 3.40 L (3.80-4.90) g/dL Microbiology - Last 24 Hours (Table) 03/22/21 15:31 Blood Culture Gram Stain - Final Blood Blood Culture - Final Bacillus species Not Anthracis 03/22/21 15:54 Blood Culture - Preliminary Blood No Growth after 24 hours Assessment and Plan Assessment: 1 COVID-19 infection symptoms outside the window for Remdesivir. On room air. 2 Bacteremia secondary to gram-positive bacilli 3 Generalized weakness secondary to above 4 Diabetes mellitus 5 Hypertension Plan: The patient was seen and evaluated by Dr. Alicia Pan from the pulmonary standpoint on room air Continue Lovenox, Decadron and vitamin supplement Await final blood cultures I, the cosigning physician, performed a history & physical examination of the patient. Lungs sounds few scattered crackles. Maintaining good O2 saturations in the 90s on room air. I discussed the assessment and plan of care with my nurse practitioner, Penny Cardenas. I attest to the above note as dictated by her.
[2021-03-24] MEDS: dexAMETHasone 2 MG TAB PO SCH (16:42)
[2021-03-24 17:27] LABS: Glucose,Whole Blood 147 mg/dL (75-99)
[2021-03-24 21:07] LABS: Glucose,Whole Blood 180 mg/dL (75-99)
[2021-03-25] MEDS: ALBUTEROL HFA INHALER INHALATION SCH ×4 (07:27→20:58)
[2021-03-25 07:50] LABS: Glucose,Whole Blood 207 mg/dL (75-99)
[2021-03-25] MEDS: INSULIN ASPART (NovoLOG) 100 UNIT/ML VIAL SQ SCH ×4 (09:09→21:17)
[2021-03-25] MEDS: ENOXAPARIN 40 MG/0.4 ML SYRINGE SQ SCH (09:09)
[2021-03-25] MEDS: lisinopriL 10 MG TAB PO SCH (09:10)
[2021-03-25] MEDS: ASCORBIC ACID 500 MG TAB PO SCH (09:10)
[2021-03-25] MEDS: amLODIPine 5 MG TAB PO SCH (09:10)
[2021-03-25] MEDS: dexAMETHasone 2 MG TAB PO SCH (09:10)
[2021-03-25] MEDS: CHOLECALCIFEROL 25 MCG (1000 IU) TABLET PO SCH (09:10)
[2021-03-25] MEDS: ZINC SULFATE 220 MG CAP PO SCH (09:10)
[2021-03-25] MEDS: ASPIRIN 81 MG PO SCH (09:10)
[2021-03-25 09:13] LABS: Basophils # (A) 0.01 X 10*3/uL (0.00-0.10); Basophils % (A) 0.3 %; Eosinophils # (A) 0 X 10*3/uL (0.04-0.35); Eosinophils % (A) 0 %; HCT 35.5 % (37.2-46.3); HGB 11.7 g/dL (12.0-15.0); Lymphocytes # (A) 0.81 X 10*3/uL (0.90-5.00); Lymphocytes % (A) 22.4 %; MCH 30.4 pg (27.0-32.0); MCV 92.2 fL (80.0-97.0); Mean Platelet Volume 10.1 fL (9.5-12.2); Monocytes # (A) 0.41 X 10*3/uL (0.20-1.00); Monocytes % (A) 11.3 %; Neutrophils # (A) 2.38 X 10*3/uL (1.80-7.70); Neutrophils % (A) 65.7 %; Platelet Count 185 X 10*3/uL (140-440); RBC 3.85 X 10*6/uL (4.10-5.20); RDW 13.4 % (11.5-14.5); WBC 3.62 X 10*3/uL (4.50-10.00)
[2021-03-25 09:17] LABS: Albumin 3.4 g/dL (3.80-4.90); Albumin/Globulin Ratio 1.42 (1.60-3.17); BUN/Creat Ratio 38.57 Ratio (12.00-20.00); Calcium 7.9 mg/dL (8.7-10.3); Globulin 2.4 g/dL (1.6-3.3); Non-African American GFR(CKD) 76.8 (60.0-200.0); Potassium 3.9 mmol/L (3.5-5.5); Total Bilirubin 0.6 mg/dL (0.3-1.2); Total Protein 5.8 g/dL (6.2-8.2)
[2021-03-25] MEDS: VANCOMYCIN 1,000 MG in SODIUM CHLORIDE 0.9% 250 ML IVPB SCH (09:57)
[2021-03-25 11:58] LABS: Glucose,Whole Blood 220 mg/dL (75-99)
--- NOTE | 2021-03-25 14:19 | CDI ---
Documentation Clarification Form Date: 03/25/2021 01:51:46 PM From: Lorena Woodard RN CCDS Admit Date: 03/22/2021 07:38:00 PM Patient Name: Renetta Ball Visit Number: [id number] Discharge Date: ATTENTION: The Clinical Documentation Specialists (CDI) and [facility] Coding Staff appreciate your assistance in clarifying documentation. Please respond to the clarification below the line at the bottom and electronically sign. The CDI & [facility] Coding staff will review the response and follow-up if needed. Please note: Queries are made part of the Legal Health Record. If you have any questions, please contact the author of this message via ITS. Dr. Delaney Sweeney The Registered Dietitian assessment on indicates this patient meets criteria for being underweight. Based on this information and the findings below, is there an additional diagnosis that is clinically appropriate for this patient? History/Risk Factors: 89-year-old female presents to the ED with cough, loss of appetite, loss of smell and taste sensation, increased tiredness and body aches recently been diagnosed with COVID 19. The patient was independent with ADLs and able to drive up until a week ago. Medical History DM and HTN. Clinical Indicators: RD Consult Assessment 03/23: Current BMI: 16.6 Current body weight: 45.359 kg; [place] body weight: 56.699 kg. Estimated Protein needs 1.2 grams/kg Estimated protein needs 68 grams/day. Estimated Fluid Needs: Fluid formula 1 m./Kcal; Estimated fluid needs 1417 mls/day. Nutritional Diagnosis Clinical: Underweight Diagnostic Statement: Related to: likely weight loss and decline in caloric intake. As evidenced by BMI< 23kg/m2 for person older than 65 years. Nursing Physical Assessment 03/23: Bilateral hand grasp equal; Bilateral lower extremity strength: mild weakness. Activity: Active range of motion. Treatment: Monitoring supplement intake and PO intake. Dietary Consult: Meals and snacks: Carbohydrate modified diet. Supplements daily. Supplements: Ensure Enlive w/ Meals TID. Is there an additional diagnosis that is clinically appropriate for this patient? [ ] Mild Protein-Calorie Malnutrition [ ] Moderate Protein-Calorie Malnutrition [ x ] Severe Protein-Calorie Malnutrition [ ] Other condition, please specify [ ] Unable to Determine (Template Last Revised: January 2021) MTDD
--- NOTE | 2021-03-25 14:40 | P.PN ---
Subjective Progress Note Date: 03/25/21 Feels fine. Chest pain no nausea no vomiting no dizziness no shortness of breath Objective - Vital Signs Vital signs: Vital Signs Temp 97.6 F 03/25/21 07:00 Pulse 94 03/25/21 07:00 Resp 18 03/25/21 07:00 BP 119/80 03/25/21 07:00 Pulse Ox 91 L 03/25/21 07:00 Intake & Output 03/24/21 03/25/21 03/25/21 18:59 06:59 18:59 Intake Total 720 Balance 720 Intake: Oral 720 Other: Voiding Method Toilet # Voids 2 2 - Exam Constitutional: No acute distress Eyes: Anicteric sclerae ENMT: NC/AT Neck:Supple Lungs: Clear to auscultation, Clear to percussion, Normal respiratory effort, no accessory muscle use Cardiovascular: Heart regular in rate and rhythm, No murmurs, gallops, or rubs no peripheral edema Abdominal: Soft Nontender, non distended, positive bowel sounds Extremities:No digital cyanosis No clubbing Psychiatric: Alert and oriented to person, place and time, Appropriate affect Intact judgement Neuro: Muscles Strength 5/5 in all 4 extremities, Cranial nerves II-XII grossly intact. No focal sensory deficits - Labs CBC & Chem 7: 03/25/21 06:16 03/25/21 06:16 Labs: Abnormal Lab Results - Last 24 Hours (Table) 03/22/21 03/24/21 03/24/21 Range/Units 15:30 17:19 20:57 WBC (4.50-10.00) X 10*3/uL RBC (4.10-5.20) X 10*6/uL Hgb (12.0-15.0) g/dL Hct (37.2-46.3) % Lymphocytes # (0.90-5.00) X 10*3/uL Eosinophils # (0.04-0.35) X 10*3/uL Carbon Dioxide (21.6-31.8) mmol/L Anion Gap (4.00-12.00) mmol/L BUN/Creatinine Ratio (12.00-20.00) Ratio Glucose (70-110) mg/dL POC Glucose (mg/dL) 147 H 180 H (75-99) mg/dL Calcium (8.7-10.3) mg/dL Total Protein (6.2-8.2) g/dL Albumin (3.80-4.90) g/dL Albumin/Globulin Ratio (1.60-3.17) g/dL Coronavirus (PCR) Detected A (Not Detected) 03/25/21 03/25/21 03/25/21 Range/Units 06:16 06:16 07:49 WBC 3.62 L (4.50-10.00) X 10*3/uL RBC 3.85 L (4.10-5.20) X 10*6/uL Hgb 11.7 L (12.0-15.0) g/dL Hct 35.5 L (37.2-46.3) % Lymphocytes # 0.81 L (0.90-5.00) X 10*3/uL Eosinophils # 0 L (0.04-0.35) X 10*3/uL Carbon Dioxide 18.0 L (21.6-31.8) mmol/L Anion Gap 14.00 H (4.00-12.00) mmol/L BUN/Creatinine Ratio 38.57 H (12.00-20.00) Ratio Glucose 224 H (70-110) mg/dL POC Glucose (mg/dL) 207 H (75-99) mg/dL Calcium 7.9 L (8.7-10.3) mg/dL Total Protein 5.8 L (6.2-8.2) g/dL Albumin 3.40 L (3.80-4.90) g/dL Albumin/Globulin Ratio 1.42 L (1.60-3.17) g/dL Coronavirus (PCR) (Not Detected) 03/25/21 Range/Units 11:40 WBC (4.50-10.00) X 10*3/uL RBC (4.10-5.20) X 10*6/uL Hgb (12.0-15.0) g/dL Hct (37.2-46.3) % Lymphocytes # (0.90-5.00) X 10*3/uL Eosinophils # (0.04-0.35) X 10*3/uL Carbon Dioxide (21.6-31.8) mmol/L Anion Gap (4.00-12.00) mmol/L BUN/Creatinine Ratio (12.00-20.00) Ratio Glucose (70-110) mg/dL POC Glucose (mg/dL) 220 H (75-99) mg/dL Calcium (8.7-10.3) mg/dL Total Protein (6.2-8.2) g/dL Albumin (3.80-4.90) g/dL Albumin/Globulin Ratio (1.60-3.17) g/dL Coronavirus (PCR) (Not Detected) Microbiology - Last 24 Hours (Table) 03/22/21 15:54 Blood Culture - Preliminary Blood No Growth after 48 hours 03/22/21 18:37 Urine Culture - Final Urine,Voided Assessment and Plan Plan: 1. Covid 19 infection : Continue oxygen, bronchodilators, vitamin C, and dexamethasone. CTA negative for PE. Patient currently is on room air. Appreciate pulmonology input. on 2 L of oxygen . 2. debility generalized body aches supportive care, continue PT OT 3. bacillus bacteremia: Pending final cultures continue vancomycin. 4. Severe protein calorie malnutrition: BMI 16.6 chronic conditions hypertension , continue home medications DM 2 with hyperglycemia , insulin sliding scale fall precautions PT eval , input appreciated CODE STATUS:full code DVT prophylaxis: lovenox Discussed with: Patient, nurse Anticipated discharge place: home with home health likely tomorrow
--- NOTE | 2021-03-25 16:03 | P.PN ---
Subjective Progress Note Date: 03/25/21 This is a pleasant 89-year-old female patient with a history of DVTs mellitus, hypertension, former smoker. She states about 2 weeks ago she was exposed to COVID-19 by her grandson. She had been doing well until about a week ago and she had developed increasing shortness of breath cough and congestion. She did test +3-4 days prior to her arrival here to the emergency room. She is seen today in consultation on the regular medical floor. She is currently resting quite comfortably in bed. Maintaining O2 saturations in the 90s on room air. She's been afebrile. Hemodynamically stable. States she was hoping to go home. Preliminary blood culture revealed gram-positive bacilli. She's been initiated on vancomycin. White count 4.6. Hemoglobin 12.3. Lymphocytes 0.6. D-dimer 0.57. Sodium 135. Potassium 3.8. Creatinine 0.5. Glucose 153. LDH 201. Pro-calcitonin 0.20. Urine culture pending. CT angiogram ruled out pulmonary embolism. There is patchy pulmonary infiltrates suspect secondary to pulmonary fibrosis versus minimal pneumonia. She has been initiated on Lovenox, vitamin supplements. The patient is seen sitting a second 2020 in follow-up on the regular medical floor. She is currently resting quite comfortably in bed. Awake and alert in no acute distress. Continue to maintain good O2 saturations in the 90s on room air. She's been afebrile. Hemodynamically stable. Blood culture positive for bacillus species not anthracis. Urine culture pending. Follow-up blood culture pending. White count 2.2. Hemoglobin 10.0. Sodium 138. Potassium 4.1. Creatinine 0.6. She remains on vancomycin. Continue Lovenox, vitamin supplements. On today's evaluation of 03/25/2021, the patient is being seen for a follow-up. Is a case of COVID-19 infection/pneumonia. She was initially on room air oxygen. The patient was placed on oxygen at 2 L per minute overnight. Her breathing is nonlabored. She doesn't look toxic at all. Blood culture was positive for bacillus species, and the patient was given repeat blood cultures that came back negative. I suspect a contamination. Urine culture has been negative. She is resting comfortably in bed. She has no specific complaints. She tells that she has a good social support system and she wants to go home. Objective - Vital Signs Vital signs: Vital Signs Temp 98.4 F 03/25/21 15:00 Pulse 68 03/25/21 15:00 Resp 20 03/25/21 15:00 BP 134/77 03/25/21 15:00 Pulse Ox 91 L 03/25/21 15:00 Intake & Output 03/24/21 03/25/21 03/25/21 18:59 06:59 18:59 Intake Total 720 Balance 720 Intake: Oral 720 Other: Voiding Method Toilet # Voids 2 2 3 # Bowel Movements 2 - Exam GENERAL EXAM: Alert, pleasant 89-year-old female patient, on room air, comfortab le in no apparent distress. HEAD: Normocephalic. EYES: Normal reaction of pupils, equal size. NOSE: Clear with pink turbinates. THROAT: No erythema or exudates. NECK: No masses, no JVD. CHEST: No chest wall deformity. LUNGS: Equal air entry with faint crackles in the posterior bases. CVS: S1 and S2 normal with no audible murmur, regular rhythm. ABDOMEN: No hepatosplenomegaly, normal bowel sounds, no guarding or rigidity. SPINE: No scoliosis or deformity SKIN: No rashes CENTRAL NERVOUS SYSTEM: No focal deficits, tone is normal in all 4 extremities. EXTREMITIES: There is no peripheral edema. No clubbing, no cyanosis. Peripheral pulses are intact. - Labs CBC & Chem 7: 03/25/21 06:16 03/25/21 06:16 Labs: Abnormal Lab Results - Last 24 Hours (Table) 03/22/21 03/24/21 03/24/21 Range/Units 15:30 17:19 20:57 WBC (4.50-10.00) X 10*3/uL RBC (4.10-5.20) X 10*6/uL Hgb (12.0-15.0) g/dL Hct (37.2-46.3) % Lymphocytes # (0.90-5.00) X 10*3/uL Eosinophils # (0.04-0.35) X 10*3/uL Carbon Dioxide (21.6-31.8) mmol/L Anion Gap (4.00-12.00) mmol/L BUN/Creatinine Ratio (12.00-20.00) Ratio Glucose (70-110) mg/dL POC Glucose (mg/dL) 147 H 180 H (75-99) mg/dL Calcium (8.7-10.3) mg/dL Total Protein (6.2-8.2) g/dL Albumin (3.80-4.90) g/dL Albumin/Globulin Ratio (1.60-3.17) g/dL Coronavirus (PCR) Detected A (Not Detected) 03/25/21 03/25/21 03/25/21 Range/Units 06:16 06:16 07:49 WBC 3.62 L (4.50-10.00) X 10*3/uL RBC 3.85 L (4.10-5.20) X 10*6/uL Hgb 11.7 L (12.0-15.0) g/dL Hct 35.5 L (37.2-46.3) % Lymphocytes # 0.81 L (0.90-5.00) X 10*3/uL Eosinophils # 0 L (0.04-0.35) X 10*3/uL Carbon Dioxide 18.0 L (21.6-31.8) mmol/L Anion Gap 14.00 H (4.00-12.00) mmol/L BUN/Creatinine Ratio 38.57 H (12.00-20.00) Ratio Glucose 224 H (70-110) mg/dL POC Glucose (mg/dL) 207 H (75-99) mg/dL Calcium 7.9 L (8.7-10.3) mg/dL Total Protein 5.8 L (6.2-8.2) g/dL Albumin 3.40 L (3.80-4.90) g/dL Albumin/Globulin Ratio 1.42 L (1.60-3.17) g/dL Coronavirus (PCR) (Not Detected) 03/25/21 Range/Units 11:40 WBC (4.50-10.00) X 10*3/uL RBC (4.10-5.20) X 10*6/uL Hgb (12.0-15.0) g/dL Hct (37.2-46.3) % Lymphocytes # (0.90-5.00) X 10*3/uL Eosinophils # (0.04-0.35) X 10*3/uL Carbon Dioxide (21.6-31.8) mmol/L Anion Gap (4.00-12.00) mmol/L BUN/Creatinine Ratio (12.00-20.00) Ratio Glucose (70-110) mg/dL POC Glucose (mg/dL) 220 H (75-99) mg/dL Calcium (8.7-10.3) mg/dL Total Protein (6.2-8.2) g/dL Albumin (3.80-4.90) g/dL Albumin/Globulin Ratio (1.60-3.17) g/dL Coronavirus (PCR) (Not Detected) Microbiology - Last 24 Hours (Table) 03/22/21 15:54 Blood Culture - Preliminary Blood No Growth after 48 hours 03/22/21 18:37 Urine Culture - Final Urine,Voided Assessment and Plan Plan: 1 COVID-19 infection symptoms outside the window for Remdesivir. 2 Bacteremia secondary to gram-positive bacilli, one blood culture out of 3, likely contaminant 3 Generalized weakness secondary to above 4 Diabetes mellitus 5 Hypertension Plan: Continue Decadron Stable from the pulmonary standpoint on 2 L of oxygen by nasal cannula Continue Lovenox, Decadron and vitamin supplement Blood cultures likely contaminant Pulmonary critical care service will sign off
[2021-03-25 17:12] LABS: Glucose,Whole Blood 252 mg/dL (75-99)
[2021-03-25 21:16] LABS: Glucose,Whole Blood 220 mg/dL (75-99)
[2021-03-26 07:43] LABS: Glucose,Whole Blood 96 mg/dL (75-99)
[2021-03-26 07:44] LABS: Basophils % (A) 0 %; Eosinophils % (A) 0 %; HCT 36.9 % (34.0-46.0); HGB 12.5 gm/dL (11.4-16.0); Lymphocytes # (A) 0.5 k/uL (1.0-4.8); Lymphocytes % (A) 7 %; MCH 30.8 pg (25.0-35.0); MCHC 33.9 g/dL (31.0-37.0); MCV 90.7 fL (80.0-100.0); Mean Platelet Volume 7.6; Monocytes # (A) 0.3 k/uL (0-1.0); Monocytes % (A) 4 %; Neutrophils # (A) 6.2 k/uL (1.3-7.7); Neutrophils % (A) 87 %; Platelet Count 245 k/uL (150-450); RBC 4.07 m/uL (3.80-5.40); RDW 13.2 % (11.5-15.5); WBC 7.1 k/uL (3.8-10.6)
[2021-03-26] MEDS: ALBUTEROL HFA INHALER INHALATION SCH ×4 (07:56→20:29)
[2021-03-26] MEDS ORDERED: VANCOMYCIN TROUGH DUE 1 EACH MISC MISCELLANE ONE (08:00)
[2021-03-26 08:07] LABS: ALT 18 U/L (4-34); AST 33 U/L (14-36); African American GFR (CKD) >90 (>60 ml/min/1.73 sqM); Albumin/Globulin Ratio 1.1; Alkaline Phosphatase 50 U/L (38-126); Anion Gap 9 mmol/L; Blood Urea Nitrogen 35 mg/dL (7-17); Calcium 8.5 mg/dL (8.4-10.2); Carbon Dioxide 23 mmol/L (22-30); Chloride 101 mmol/L (98-107); Globulin 2.8 g/dL; Glucose 230 mg/dL (74-99); Non-African American GFR(CKD) 79 (>60 ml/min/1.73 sqM); Potassium 4.3 mmol/L (3.5-5.1); Sodium 133 mmol/L (137-145); Total Bilirubin 0.6 mg/dL (0.2-1.3); Total Protein 5.8 g/dL (6.3-8.2)
[2021-03-26] MEDS: INSULIN ASPART (NovoLOG) 100 UNIT/ML VIAL SQ SCH ×4 (08:24→21:32)
[2021-03-26] MEDS: ASCORBIC ACID 500 MG TAB PO SCH (08:25)
[2021-03-26] MEDS: amLODIPine 5 MG TAB PO SCH (08:25)
[2021-03-26] MEDS: CHOLECALCIFEROL 25 MCG (1000 IU) TABLET PO SCH (08:25)
[2021-03-26] MEDS: lisinopriL 10 MG TAB PO SCH (08:25)
[2021-03-26] MEDS: ASPIRIN 81 MG PO SCH (08:25)
[2021-03-26] MEDS: ZINC SULFATE 220 MG CAP PO SCH (08:25)
[2021-03-26] MEDS: ENOXAPARIN 40 MG/0.4 ML SYRINGE SQ SCH (08:26)
[2021-03-26] MEDS: dexAMETHasone 2 MG TAB PO SCH (08:26)
[2021-03-26] MEDS: VANCOMYCIN 1,000 MG in SODIUM CHLORIDE 0.9% 250 ML IVPB SCH (10:21)
[2021-03-26] MEDS: SODIUM CHLORIDE 0.9% 1,000 ML IV SCH ×2 (10:41→21:31)
--- NOTE | 2021-03-26 11:23 | P.PN ---
Subjective Requiring more oxygen overnight up to 4 L but currently down to 2 L. No chest pain no abdominal pain. Objective - Vital Signs Vital signs: Vital Signs Temp 97.6 F 03/26/21 07:35 Pulse 92 03/26/21 08:00 Resp 16 03/26/21 08:00 BP 130/77 03/26/21 07:35 Pulse Ox 90 L 03/26/21 07:35 Intake & Output 03/25/21 03/26/21 03/26/21 18:59 06:59 18:59 Other: Voiding Method Toilet # Voids 3 2 # Bowel Movements 2 - Exam Constitutional: No acute distress, on oxygen. Eyes: Anicteric sclerae ENMT: NC/AT Neck:Supple Lungs: Clear to auscultation, Clear to percussion, Normal respiratory effort, no accessory muscle use Cardiovascular: Heart regular in rate and rhythm, No murmurs, gallops, or rubs no peripheral edema Abdominal: Soft Nontender, non distended, positive bowel sounds Extremities:No digital cyanosis No clubbing Psychiatric: Alert and oriented to person, place and time, Appropriate affect Intact judgement Neuro: Muscles Strength 5/5 in all 4 extremities, Cranial nerves II-XII grossly intact. - Labs CBC & Chem 7: 03/26/21 07:04 03/26/21 07:04 Labs: Abnormal Lab Results - Last 24 Hours (Table) 03/22/21 03/25/21 03/25/21 Range/Units 15:30 11:40 17:11 Lymphocytes # (1.0-4.8) k/uL Sodium (137-145) mmol/L BUN (7-17) mg/dL Glucose (74-99) mg/dL POC Glucose (mg/dL) 220 H 252 H (75-99) mg/dL Total Protein (6.3-8.2) g/dL Albumin (3.5-5.0) g/dL Coronavirus (PCR) Detected A (Not Detected) 03/25/21 03/26/21 03/26/21 Range/Units 21:13 07:04 07:04 Lymphocytes # 0.5 L (1.0-4.8) k/uL Sodium 133 L (137-145) mmol/L BUN 35 H (7-17) mg/dL Glucose 230 H (74-99) mg/dL POC Glucose (mg/dL) 220 H (75-99) mg/dL Total Protein 5.8 L (6.3-8.2) g/dL Albumin 3.0 L (3.5-5.0) g/dL Coronavirus (PCR) (Not Detected) Microbiology - Last 24 Hours (Table) 03/22/21 15:54 Blood Culture - Preliminary Blood No Growth after 72 hours Assessment and Plan Plan: 1. Covid 19 infection : Continue oxygen, bronchodilators, vitamin C, and dexamethasone. CTA negative for PE. Patient currently is on room air. Appreciate pulmonology input. on 2 L of oxygen . 2. debility generalized body aches supportive care, continue PT OT 3. bacillus bacteremia: Pending final cultures, likely a contaminant discontinue vancomycin. 4. Severe protein calorie malnutrition: BMI 16.6 5. Hypovolemia: Start normal saline at 75 mL/h chronic conditions hypertension , continue home medications DM 2 with hyperglycemia , insulin sliding scale fall precautions PT eval , input appreciated CODE STATUS:full code DVT prophylaxis: lovenox Discussed with: Patient, nurse Anticipated discharge place: home with home health versus going to rehab, pending clinical progression
[2021-03-26 12:11] LABS: Glucose,Whole Blood 210 mg/dL (75-99)
--- NOTE | 2021-03-26 12:22 | ECHOF ---
Referral Reason:sob MEASUREMENTS -------- HEIGHT: 165.1 cm WEIGHT: 45.4 kg BP: IVSd: 1.2 cm (0.6 - 1.1) LVIDd: 3.2 cm (3.9 - 5.3) LVPWd: 1.7 cm (0.6 - 1.1) IVSs: 1.5 cm LVIDs: 2.5 cm LVPWs: 1.4 cm Ao Diam: 3.4 cm (2.0 - 3.7) AV Cusp: 1.6 cm (1.5 - 2.6) LA Diam: 4.3 cm (2.7 - 3.8) RAP: 5.00 mmHg RVSP: 28.50 mmHg FINDINGS -------- Resting tachycardia (HR>100bpm). This was a technically adequate study. Pt is Covid positive. The left ventricular size is normal. There is mild concentric left ventricular hypertrophy. Overa ll left ventricular systolic function is normal with, an EF between 55 - 60 %. The right ventricle is normal in size. The left atrium is moderately dilated. The right atrial size is normal. There is moderate aortic valve sclerosis. There is no evidence of aortic regurgitation. Severe mitral annular calcification present. Mild mitral regurgitation is present. Mild tricuspid regurgitation present. Right ventricular systolic pressure is normal at < 35 mmHg. The pulmonic valve was not well visualized. There is no pulmonic regurgitation present. The aortic root size is normal. There is no pericardial effusion. CONCLUSIONS -------- 1. Pt is Covid positive. 2. There is mild concentric left ventricular hypertrophy. 3. Overall left ventricular systolic function is normal with, an EF between 55 - 60 %. 4. The left atrium is moderately dilated. 5. There is moderate aortic valve sclerosis. 6. Severe mitral annular calcification present. 7. Mild mitral regurgitation is present. 8. Mild tricuspid regurgitation present. 9. There is no pericardial effusion. ASSISTANT BRANCH MANAGER: Bertha Pitts RDCS
[2021-03-26 17:31] LABS: Glucose,Whole Blood 177 mg/dL (75-99)
[2021-03-26 20:44] LABS: Glucose,Whole Blood 166 mg/dL (75-99)
[2021-03-26] MEDS ORDERED: VANCOMYCIN 1,000 MG in SODIUM CHLORIDE 0.9% 250 ML IVPB SCH (22:00)
[2021-03-27 07:02] LABS: Glucose,Whole Blood 167 mg/dL (75-99)
[2021-03-27] MEDS ORDERED: IBUPROFEN 400 MG TAB PO PRN (08:28)
[2021-03-27] MEDS: ALBUTEROL HFA INHALER INHALATION SCH ×4 (08:35→20:56)
[2021-03-27] MEDS ORDERED: FUROSEMIDE 10 MG/ML 4 ML VIAL IV STA (08:46)
[2021-03-27] MEDS ORDERED: KETOROLAC 15 MG/ML 1 ML VIAL IM SCH (09:00)
[2021-03-27] MEDS: dexAMETHasone 2 MG TAB PO SCH (09:15)
[2021-03-27] MEDS: KETOROLAC 15 MG/ML 1 ML VIAL IVP SCH ×3 (09:15→23:15)
[2021-03-27] MEDS: ENOXAPARIN 40 MG/0.4 ML SYRINGE SQ SCH (09:15)
[2021-03-27] MEDS: ASPIRIN 81 MG PO SCH (09:15)
[2021-03-27] MEDS: INSULIN ASPART (NovoLOG) 100 UNIT/ML VIAL SQ SCH ×4 (09:16→20:38)
[2021-03-27 09:25] LABS: ALT 21 U/L (4-34); AST 36 U/L (14-36); African American GFR (CKD) >90 (>60 ml/min/1.73 sqM); Albumin 3.1 g/dL (3.5-5.0); Albumin/Globulin Ratio 1.1; Alkaline Phosphatase 54 U/L (38-126); Anion Gap 10 mmol/L; Blood Urea Nitrogen 33 mg/dL (7-17); Calcium 8.4 mg/dL (8.4-10.2); Carbon Dioxide 21 mmol/L (22-30); Chloride 105 mmol/L (98-107); Globulin 2.8 g/dL; Glucose 182 mg/dL (74-99); Non-African American GFR(CKD) 81 (>60 ml/min/1.73 sqM); Potassium 4.3 mmol/L (3.5-5.1); Sodium 136 mmol/L (137-145); Total Bilirubin 0.8 mg/dL (0.2-1.3); Total Protein 5.9 g/dL (6.3-8.2)
--- NOTE | 2021-03-27 09:30 | XR ---
EXAMINATION TYPE: XR chest 1V portable DATE OF EXAM: 03/27/2021 CLINICAL HISTORY: covid. TECHNIQUE: Portable frontal view of the chest. COMPARISON: 03/22/2021 FINDINGS: There are marked interstitial opacities of the bilateral lungs which are significantly incr eased versus 03/22/2021 comparison. Cardiomediastinal silhouette unchanged. Blunting at the left costo phrenic angle may represent small left pleural effusion. No pneumothorax. IMPRESSION: 1. Marked interstitial opacities characteristic of Covid 19 pneumonitis, significantly increased vers us 03/22/2021. 2. Atelectasis versus small left pleural effusion.
--- NOTE | 2021-03-27 09:50 | P.PN ---
Subjective Progress Note Date: 03/27/21 Oxygenation continued to worsen, now on nonrebreather and high flow@100%. Objective - Vital Signs Vital signs: Vital Signs Temp 99.4 F 03/27/21 07:00 Pulse 109 H 03/27/21 09:12 Resp 24 03/27/21 07:00 BP 145/89 03/27/21 09:12 Pulse Ox 95 03/27/21 09:12 Intake & Output 03/26/21 03/27/21 03/27/21 18:59 06:59 18:59 Other: Voiding Method Toilet Toilet # Voids 2 0 - Exam Constitutional: on oxygen. Eyes: Anicteric sclerae ENMT: NC/AT Neck:Supple Lungs: Decreased breath sounds Cardiovascular: Heart regular in rate and rhythm, No murmurs, gallops, or rubs Abdominal: Soft Nontender, non distended, positive bowel sounds Extremities:No digital cyanosis No clubbing Psychiatric: Alert and oriented to person, place and time Neuro: Muscles Strength 5/5 in all 4 extremities, Cranial nerves II-XII grossly intact. - Labs CBC & Chem 7: 03/26/21 07:04 03/27/21 06:20 Labs: Abnormal Lab Results - Last 24 Hours (Table) 03/22/21 03/26/21 03/26/21 Range/Units 07:33 12:09 17:29 D-Dimer (<0.60) mg/L FEU Sodium (137-145) mmol/L Carbon Dioxide (22-30) mmol/L BUN (7-17) mg/dL Glucose (74-99) mg/dL POC Glucose (mg/dL) 210 H 177 H (75-99) mg/dL C-Reactive Protein 7.0 H (<1.0) mg/dL Total Protein (6.3-8.2) g/dL Albumin (3.5-5.0) g/dL 03/26/21 03/27/21 03/27/21 Range/Units 20:43 06:20 06:20 D-Dimer 0.71 H (<0.60) mg/L FEU Sodium 136 L (137-145) mmol/L Carbon Dioxide 21 L (22-30) mmol/L BUN 33 H (7-17) mg/dL Glucose 182 H (74-99) mg/dL POC Glucose (mg/dL) 166 H (75-99) mg/dL C-Reactive Protein (<1.0) mg/dL Total Protein 5.9 L (6.3-8.2) g/dL Albumin 3.1 L (3.5-5.0) g/dL 03/27/21 Range/Units 07:00 D-Dimer (<0.60) mg/L FEU Sodium (137-145) mmol/L Carbon Dioxide (22-30) mmol/L BUN (7-17) mg/dL Glucose (74-99) mg/dL POC Glucose (mg/dL) 167 H (75-99) mg/dL C-Reactive Protein (<1.0) mg/dL Total Protein (6.3-8.2) g/dL Albumin (3.5-5.0) g/dL Microbiology - Last 24 Hours (Table) 03/22/21 15:54 Blood Culture - Preliminary Blood No Growth after 96 hours Assessment and Plan Plan: 1. Covid 19 infection with acute hypoxic respiratory failure : Continue oxygen, bronchodilators, vitamin C, and dexamethasone. CTA negative for PE. Patient is on nonrebreather with hypovolemia 100% . 2. debility generalized body aches supportive care, continue PT OT 3. bacillus bacteremia: Pending final cultures, likely a contaminant discontinued vancomycin. 4. Severe protein calorie malnutrition: BMI 16.6 5. Hypovolemia: Discontinue IV fluids. Now with hypovolemia, give Lasix as needed. 2-D echo consistent with EF 55-60%. 6. Intermittent atrial fibrillation: Monitor heart rate, continue aspirin. Rate control medications as indicated. chronic conditions hypertension , continue home medications DM 2 with hyperglycemia , insulin sliding scale fall precautions PT eval , input appreciated CODE STATUS:full code DVT prophylaxis: lovenox Discussed with: Patient, nurse and patient's son over the phone Anticipated discharge place: Clinically worse, discussed with the patient's son, they are considering DO NOT RESUSCITATE. We will continue to check with patient and family.
[2021-03-27] MEDS: ASCORBIC ACID 500 MG TAB PO SCH (11:00)
[2021-03-27] MEDS: lisinopriL 10 MG TAB PO SCH (11:00)
[2021-03-27] MEDS: CHOLECALCIFEROL 25 MCG (1000 IU) TABLET PO SCH (11:00)
[2021-03-27] MEDS: ZINC SULFATE 220 MG CAP PO SCH (11:01)
[2021-03-27 11:07] LABS: Basophils # (A) 0.01 X 10*3/uL (0.00-0.10); Basophils % (A) 0.1 %; Eosinophils # (A) 0 X 10*3/uL (0.04-0.35); Eosinophils % (A) 0 %; HCT 36.1 % (37.2-46.3); HGB 11.8 g/dL (12.0-15.0); Lymphocytes # (A) 0.64 X 10*3/uL (0.90-5.00); Lymphocytes % (A) 7.9 %; MCH 30.2 pg (27.0-32.0); MCHC 32.7 g/dL (32.0-37.0); MCV 92.3 fL (80.0-97.0); Monocytes # (A) 0.38 X 10*3/uL (0.20-1.00); Monocytes % (A) 4.7 %; Neutrophils # (A) 7.07 X 10*3/uL (1.80-7.70); Neutrophils % (A) 86.8 %; Platelet Count 263 X 10*3/uL (140-440); RBC 3.91 X 10*6/uL (4.10-5.20); RDW 13.7 % (11.5-14.5); WBC 8.14 X 10*3/uL (4.50-10.00)
[2021-03-27 12:25] LABS: Glucose,Whole Blood 238 mg/dL (75-99)
--- NOTE | 2021-03-27 12:43 | P.PN ---
Subjective Progress Note Date: 03/27/21 Principal diagnosis: COVID-19 infection This is a pleasant 89-year-old female patient with a history of DVTs mellitus, hypertension, former smoker. She states about 2 weeks ago she was exposed to COVID-19 by her grandson. She had been doing well until about a week ago and she had developed increasing shortness of breath cough and congestion. She did test +3-4 days prior to her arrival here to the emergency room. She is seen today in consultation on the regular medical floor. She is currently resting quite comfortably in bed. Maintaining O2 saturations in the 90s on room air. She's been afebrile. Hemodynamically stable. States she was hoping to go home. Preliminary blood culture revealed gram-positive bacilli. She's been initiated on vancomycin. White count 4.6. Hemoglobin 12.3. Lymphocytes 0.6. D-dimer 0.57. Sodium 135. Potassium 3.8. Creatinine 0.5. Glucose 153. LDH 201. Pro-calcitonin 0.20. Urine culture pending. CT angiogram ruled out pulmonary embolism. There is patchy pulmonary infiltrates suspect secondary to pulmonary fibrosis versus minimal pneumonia. She has been initiated on Lovenox, vitamin supplements. The patient is seen sitting a second 2020 in follow-up on the regular medical floor. She is currently resting quite comfortably in bed. Awake and alert in no acute distress. Continue to maintain good O2 saturations in the 90s on room air. She's been afebrile. Hemodynamically stable. Blood culture positive for bacillus species not anthracis. Urine culture pending. Follow-up blood culture pending. White count 2.2. Hemoglobin 10.0. Sodium 138. Potassium 4.1. Creatinine 0.6. She remains on vancomycin. Continue Lovenox, vitamin supplements. On today's evaluation of 03/25/2021, the patient is being seen for a follow-up. Is a case of COVID-19 infection/pneumonia. She was initially on room air oxygen. The patient was placed on oxygen at 2 L per minute overnight. Her breathing is nonlabored. She doesn't look toxic at all. Blood culture was positive for bacillus species, and the patient was given repeat blood cultures that came back negative. I suspect a contamination. Urine culture has been negative. She is resting comfortably in bed. She has no specific complaints. She tells that she has a good social support system and she wants to go home. The patient is seen today 03/27/2021 in follow-up on the regular medical floor. She had been doing well and was hoping to go home. This morning however after being up to the bedside commode she developed increasing shortness of breath and chest pain. She was found to be in atrial fibrillation. She also was desaturating and is currently on 15 L high flow nasal cannula plus a nonrebreather mask to maintain O2 saturations in the 90s. She received Lasix 40 mg IVP 1. Troponin was negative. Asked x-ray reveals worsening interstitial opacities compared to previous on 03/22/2021. Atelectasis versus small left pleural effusion. White count 8.1. Hemoglobin 11.8. Lymphocytes 0.64. D- dimer 0.71. Sodium 136. Potassium 4.3. Creatinine 0.60. Presently she is resting more comfortably in bed. Awake and alert. Denies any current chest pain. She remains on dexamethasone, Lovenox, vitamin supplements. Objective - Vital Signs Vital signs: Vital Signs Temp 99.4 F 03/27/21 07:00 Pulse 109 H 03/27/21 09:12 Resp 24 03/27/21 08:00 BP 145/89 03/27/21 09:12 Pulse Ox 95 03/27/21 09:12 Intake & Output 03/26/21 03/27/21 03/27/21 18:59 06:59 18:59 Other: Voiding Method Toilet Toilet Bedside Commode # Voids 2 0 1 # Bowel Movements 1 - Exam GENERAL EXAM: Alert, pleasant 89-year-old female patient, 15 L high flow nasal cannula plus a nonrebreather mask, comfortable in no apparent distress. HEAD: Normocephalic. EYES: Normal reaction of pupils, equal size. NOSE: Clear with pink turbinates. THROAT: No erythema or exudates. NECK: No masses, no JVD. CHEST: No chest wall deformity. LUNGS: Equal air entry with faint crackles in the posterior bases. CVS: S1 and S2 normal with no audible murmur, regular rhythm. ABDOMEN: No hepatosplenomegaly, normal bowel sounds, no guarding or rigidity. SPINE: No scoliosis or deformity SKIN: No rashes CENTRAL NERVOUS SYSTEM: No focal deficits, tone is normal in all 4 extremities. EXTREMITIES: There is no peripheral edema. No clubbing, no cyanosis. Peripheral pulses are intact. - Labs CBC & Chem 7: 03/27/21 06:20 03/27/21 06:20 Labs: Abnormal Lab Results - Last 24 Hours (Table) 03/22/21 03/26/21 03/26/21 Range/Units 07:33 12:09 17:29 RBC (4.10-5.20) X 10*6/uL Hgb (12.0-15.0) g/dL Hct (37.2-46.3) % Lymphocytes # (0.90-5.00) X 10*3/uL Eosinophils # (0.04-0.35) X 10*3/uL D-Dimer (<0.60) mg/L FEU Sodium (137-145) mmol/L Carbon Dioxide (22-30) mmol/L BUN (7-17) mg/dL Glucose (74-99) mg/dL POC Glucose (mg/dL) 210 H 177 H (75-99) mg/dL C-Reactive Protein 7.0 H (<1.0) mg/dL Total Protein (6.3-8.2) g/dL Albumin (3.5-5.0) g/dL 03/26/21 03/27/21 03/27/21 Range/Units 20:43 06:20 06:20 RBC 3.91 L (4.10-5.20) X 10*6/uL Hgb 11.8 L (12.0-15.0) g/dL Hct 36.1 L (37.2-46.3) % Lymphocytes # 0.64 L (0.90-5.00) X 10*3/uL Eosinophils # 0 L (0.04-0.35) X 10*3/uL D-Dimer 0.71 H (<0.60) mg/L FEU Sodium (137-145) mmol/L Carbon Dioxide (22-30) mmol/L BUN (7-17) mg/dL Glucose (74-99) mg/dL POC Glucose (mg/dL) 166 H (75-99) mg/dL C-Reactive Protein (<1.0) mg/dL Total Protein (6.3-8.2) g/dL Albumin (3.5-5.0) g/dL 03/27/21 03/27/21 Range/Units 06:20 07:00 RBC (4.10-5.20) X 10*6/uL Hgb (12.0-15.0) g/dL Hct (37.2-46.3) % Lymphocytes # (0.90-5.00) X 10*3/uL Eosinophils # (0.04-0.35) X 10*3/uL D-Dimer (<0.60) mg/L FEU Sodium 136 L (137-145) mmol/L Carbon Dioxide 21 L (22-30) mmol/L BUN 33 H (7-17) mg/dL Glucose 182 H (74-99) mg/dL POC Glucose (mg/dL) 167 H (75-99) mg/dL C-Reactive Protein (<1.0) mg/dL Total Protein 5.9 L (6.3-8.2) g/dL Albumin 3.1 L (3.5-5.0) g/dL Microbiology - Last 24 Hours (Table) 03/22/21 15:54 Blood Culture - Preliminary Blood No Growth after 96 hours Assessment and Plan Assessment: 1 Acute hypoxemic respiratory failure secondary to COVID-19 infection symptoms o utside the window for Remdesivir. Today required 15 L high flow nasal cannula plus nonrebreather. X-ray shows worsening bilateral infiltrates 2 Doubt bacteremia, probable contaminant 3 Generalized weakness secondary to above 4 Diabetes mellitus 5 Hypertension Plan: The patient was seen and evaluated by Dr. Szymanski Chest x-ray reveals worsening bilateral infiltrates Increasing oxygen requirements to 15 L high flow nonrebreather Would recommend tocilizumab Blood culture suspected contaminant Continue Lovenox, Decadron and vitamin supplement I, the cosigning physician, performed a history & physical examination of the patient. Lungs sounds few scattered crackles. Maintaining O2 saturations in the 90s on 15 L high flow nasal cannula plus nonrebreather mask. I discussed the assessment and plan of care with my nurse practitioner, Penny Cardenas. I attest to the above note as dictated by her.
[2021-03-27] MEDS: amLODIPine 5 MG TAB PO SCH (15:34)
[2021-03-27 16:39] LABS: Glucose,Whole Blood 271 mg/dL (75-99)
[2021-03-27 20:06] LABS: Glucose,Whole Blood 350 mg/dL (75-99)
[2021-03-28 06:04] LABS: Glucose,Whole Blood 302 mg/dL (75-99)
[2021-03-28] MEDS: KETOROLAC 15 MG/ML 1 ML VIAL IVP SCH ×4 (06:19→22:59)
[2021-03-28] MEDS: INSULIN ASPART (NovoLOG) 100 UNIT/ML VIAL SQ SCH ×4 (06:19→20:36)
[2021-03-28 07:50] LABS: Basophils % (A) 0 %; Eosinophils % (A) 0 %; HCT 37.1 % (34.0-46.0); HGB 12.6 gm/dL (11.4-16.0); Lymphocytes # (A) 0.4 k/uL (1.0-4.8); Lymphocytes % (A) 3 %; MCH 30.9 pg (25.0-35.0); MCV 90.6 fL (80.0-100.0); Mean Platelet Volume 7.3; Monocytes # (A) 0.2 k/uL (0-1.0); Monocytes % (A) 2 %; Neutrophils # (A) 10.8 k/uL (1.3-7.7); Neutrophils % (A) 94 %; Platelet Count 290 k/uL (150-450); RBC 4.09 m/uL (3.80-5.40); RDW 13.4 % (11.5-15.5); WBC 11.4 k/uL (3.8-10.6)
[2021-03-28 08:12] LABS: ALT 20 U/L (4-34); AST 28 U/L (14-36); African American GFR (CKD) >90 (>60 ml/min/1.73 sqM); Albumin 2.9 g/dL (3.5-5.0); Alkaline Phosphatase 55 U/L (38-126); Anion Gap 8 mmol/L; Blood Urea Nitrogen 38 mg/dL (7-17); Calcium 8.5 mg/dL (8.4-10.2); Carbon Dioxide 24 mmol/L (22-30); Chloride 103 mmol/L (98-107); Glucose 227 mg/dL (74-99); Non-African American GFR(CKD) 80 (>60 ml/min/1.73 sqM); Potassium 3.6 mmol/L (3.5-5.1); Sodium 135 mmol/L (137-145); Total Bilirubin 0.9 mg/dL (0.2-1.3); Total Protein 5.7 g/dL (6.3-8.2)
[2021-03-28] MEDS: CHOLECALCIFEROL 25 MCG (1000 IU) TABLET PO SCH (08:23)
[2021-03-28] MEDS: amLODIPine 5 MG TAB PO SCH (08:23)
[2021-03-28] MEDS: ASPIRIN 81 MG PO SCH (08:23)
[2021-03-28] MEDS: dexAMETHasone 2 MG TAB PO SCH (08:23)
[2021-03-28] MEDS: ASCORBIC ACID 500 MG TAB PO SCH (08:24)
[2021-03-28] MEDS: lisinopriL 10 MG TAB PO SCH (08:24)
[2021-03-28] MEDS: ENOXAPARIN 40 MG/0.4 ML SYRINGE SQ SCH (08:24)
[2021-03-28] MEDS: ZINC SULFATE 220 MG CAP PO SCH (08:24)
[2021-03-28] MEDS: ALBUTEROL HFA INHALER INHALATION SCH ×4 (08:58→21:29)
--- NOTE | 2021-03-28 09:01 | P.PN ---
Subjective Progress Note Date: 03/28/21 Remains on nonrebreather. No major overnight changes. Objective - Vital Signs Vital signs: Vital Signs Temp 97.5 F L 03/28/21 08:00 Pulse 89 03/28/21 08:00 Resp 20 03/28/21 08:00 BP 136/74 03/28/21 08:00 Pulse Ox 91 L 03/28/21 08:00 Intake & Output 03/27/21 03/28/21 03/28/21 18:59 06:59 18:59 Intake Total 240 240 Output Total 300 325 Balance -300 -85 240 Weight 45.359 kg 51 kg Intake: Oral 240 240 Output: Urine 300 325 Other: Voiding Method External Catheter External Catheter # Voids 1 # Bowel Movements 1 - Exam Constitutional: on oxygen. Eyes: Anicteric sclerae ENMT: NC/AT Neck:Supple Lungs: Decreased breath sounds, no wheezing Cardiovascular: Heart regular in rate and rhythm, No murmurs, gallops, or rubs Abdominal: Soft Nontender, non distended, positive bowel sounds Extremities: No clubbing cyanosis or edema Psychiatric: Alert and oriented to person, place and time Neuro: Muscles Strength 5/5 in all 4 extremities, Cranial nerves II-XII grossly intact. - Labs CBC & Chem 7: 03/28/21 07:12 03/28/21 07:12 Labs: Abnormal Lab Results - Last 24 Hours (Table) 03/27/21 03/27/21 03/27/21 Range/Units 06:20 06:20 06:20 WBC (3.8-10.6) k/uL RBC 3.91 L (4.10-5.20) X 10*6/uL Hgb 11.8 L (12.0-15.0) g/dL Hct 36.1 L (37.2-46.3) % Neutrophils # (1.3-7.7) k/uL Lymphocytes # 0.64 L (0.90-5.00) X 10*3/uL Eosinophils # 0 L (0.04-0.35) X 10*3/uL D-Dimer 0.71 H (<0.60) mg/L FEU Sodium 136 L (137-145) mmol/L Carbon Dioxide 21 L (22-30) mmol/L BUN 33 H (7-17) mg/dL Glucose 182 H (74-99) mg/dL POC Glucose (mg/dL) (75-99) mg/dL Total Protein 5.9 L (6.3-8.2) g/dL Albumin 3.1 L (3.5-5.0) g/dL 03/27/21 03/27/21 03/27/21 Range/Units 12:22 16:28 20:04 WBC (3.8-10.6) k/uL RBC (4.10-5.20) X 10*6/uL Hgb (12.0-15.0) g/dL Hct (37.2-46.3) % Neutrophils # (1.3-7.7) k/uL Lymphocytes # (0.90-5.00) X 10*3/uL Eosinophils # (0.04-0.35) X 10*3/uL D-Dimer (<0.60) mg/L FEU Sodium (137-145) mmol/L Carbon Dioxide (22-30) mmol/L BUN (7-17) mg/dL Glucose (74-99) mg/dL POC Glucose (mg/dL) 238 H 271 H 350 H (75-99) mg/dL Total Protein (6.3-8.2) g/dL Albumin (3.5-5.0) g/dL 03/28/21 03/28/21 03/28/21 Range/Units 06:01 07:12 07:12 WBC 11.4 H (3.8-10.6) k/uL RBC (4.10-5.20) X 10*6/uL Hgb (12.0-15.0) g/dL Hct (37.2-46.3) % Neutrophils # 10.8 H (1.3-7.7) k/uL Lymphocytes # 0.4 L (0.90-5.00) X 10*3/uL Eosinophils # (0.04-0.35) X 10*3/uL D-Dimer (<0.60) mg/L FEU Sodium 135 L (137-145) mmol/L Carbon Dioxide (22-30) mmol/L BUN 38 H (7-17) mg/dL Glucose 227 H (74-99) mg/dL POC Glucose (mg/dL) 302 H (75-99) mg/dL Total Protein 5.7 L (6.3-8.2) g/dL Albumin 2.9 L (3.5-5.0) g/dL Microbiology - Last 24 Hours (Table) 03/22/21 15:54 Blood Culture - Preliminary Blood No Growth after 120 hours Assessment and Plan Plan: 1. Covid 19 infection with acute hypoxic respiratory failure with covert pneumonia: Continue oxygen, bronchodilators, vitamin C, and dexamethasone. CTA negative for PE. Patient is on nonrebreather with hypovolemia 100% . Pulm onology following. 2. debility generalized body aches supportive care, continue PT OT 3. bacillus bacteremia: Pending final cultures, likely a contaminant discontinued vancomycin. 4. Severe protein calorie malnutrition: BMI 16.6 5. Hypovolemia: off IV fluids 2-D echo consistent with EF 55-60%. 6. Intermittent atrial fibrillation: Monitor heart rate, continue aspirin. Rate control medications as indicated. chronic conditions hypertension , continue home medications DM 2 with hyperglycemia , insulin sliding scale fall precautions PT eval , input appreciated CODE STATUS:full code DVT prophylaxis: lovenox Discussed with: Patient, nurse and patient's family on multiple occasions yeste rday 03/27/[address]: Pending clinical progression
--- NOTE | 2021-03-28 10:22 | P.PN ---
Subjective Progress Note Date: 03/28/21 This is a pleasant 89-year-old female patient with a history of DVTs mellitus, hypertension, former smoker. She states about 2 weeks ago she was exposed to COVID-19 by her grandson. She had been doing well until about a week ago and she had developed increasing shortness of breath cough and congestion. She did test +3-4 days prior to her arrival here to the emergency room. 60,021, the patient is being seen for a follow-up. She remains on 100% nonrebreather facemask and her current pulse ox is around 91%. Obviously her condition decompensated over the past 48 hours and were asked to reevaluate this patient. She has short of breath and she is having some labored breathing. His chest x-ray was showing worsening in the bilateral infiltrates and this was consistent with COVID-19 related pneumonia. Possibility of fluid overload was felt to be less likely. She was given a dose of IV Lasix 1 and she did not show significant response. On today's evaluation, she is having some visual h allucinations. As mentioned earlier, the blood culture was a contaminant. White cell count 11.4 and he continues to have a lymphopenia. Electrolytes are stable, stable renal function, blood sugars at 227 patient continues to be on Decadron 6 mg by mouth daily and she is also on Lovenox 40 mg subcu every 24 hours. Her most recent inflammatory markers are from 03/27/2021 where the patient showed a d-dimer of 0.7. Her LDH level prior to that was 201 on 03/23/2021 with a CRP of 7. Her echocardiogram showed a preserved LV function with EF of around 55% and she has moderate aortic valve sclerosis. She has also component of steroid-induced hyperglycemia and Lantus insulin will be started at a dose of 12 units on a daily basis and combination with a slight scale coverage. Objective - Vital Signs Vital signs: Vital Signs Temp 97.5 F L 03/28/21 08:00 Pulse 89 03/28/21 08:00 Resp 20 03/28/21 08:00 BP 136/74 03/28/21 08:00 Pulse Ox 91 L 03/28/21 08:00 Intake & Output 03/27/21 03/28/21 03/28/21 18:59 06:59 18:59 Intake Total 240 240 Output Total 300 325 Balance -300 -85 240 Weight 45.359 kg 51 kg Intake: Oral 240 240 Output: Urine 300 325 Other: Voiding Method External Catheter External Catheter # Voids 1 # Bowel Movements 1 - Exam GENERAL EXAM: Alert, pleasant 89-year-old female patient, 15 L high flow nasal cannula plus a nonrebreather mask, comfortable in no apparent distress. HEAD: Normocephalic. EYES: Normal reaction of pupils, equal size. NOSE: Clear with pink turbinates. THROAT: No erythema or exudates. NECK: No masses, no JVD. CHEST: No chest wall deformity. LUNGS: Equal air entry with faint crackles in the posterior bases. CVS: S1 and S2 normal with no audible murmur, regular rhythm. ABDOMEN: No hepatosplenomegaly, normal bowel sounds, no guarding or rigidity. SPINE: No scoliosis or deformity SKIN: No rashes CENTRAL NERVOUS SYSTEM: No focal deficits, tone is normal in all 4 extremities. EXTREMITIES: There is no peripheral edema. No clubbing, no cyanosis. Peripheral pulses are intact. - Labs CBC & Chem 7: 03/28/21 07:12 03/28/21 07:12 Labs: Abnormal Lab Results - Last 24 Hours (Table) 03/27/21 03/27/21 03/27/21 Range/Units 06:20 12:22 16:28 WBC (3.8-10.6) k/uL RBC 3.91 L (4.10-5.20) X 10*6/uL Hgb 11.8 L (12.0-15.0) g/dL Hct 36.1 L (37.2-46.3) % Neutrophils # (1.3-7.7) k/uL Lymphocytes # 0.64 L (0.90-5.00) X 10*3/uL Eosinophils # 0 L (0.04-0.35) X 10*3/uL Sodium (137-145) mmol/L BUN (7-17) mg/dL Glucose (74-99) mg/dL POC Glucose (mg/dL) 238 H 271 H (75-99) mg/dL Total Protein (6.3-8.2) g/dL Albumin (3.5-5.0) g/dL 03/27/21 03/28/21 03/28/21 Range/Units 20:04 06:01 07:12 WBC 11.4 H (3.8-10.6) k/uL RBC (4.10-5.20) X 10*6/uL Hgb (12.0-15.0) g/dL Hct (37.2-46.3) % Neutrophils # 10.8 H (1.3-7.7) k/uL Lymphocytes # 0.4 L (0.90-5.00) X 10*3/uL Eosinophils # (0.04-0.35) X 10*3/uL Sodium (137-145) mmol/L BUN (7-17) mg/dL Glucose (74-99) mg/dL POC Glucose (mg/dL) 350 H 302 H (75-99) mg/dL Total Protein (6.3-8.2) g/dL Albumin (3.5-5.0) g/dL 03/28/21 Range/Units 07:12 WBC (3.8-10.6) k/uL RBC (4.10-5.20) X 10*6/uL Hgb (12.0-15.0) g/dL Hct (37.2-46.3) % Neutrophils # (1.3-7.7) k/uL Lymphocytes # (0.90-5.00) X 10*3/uL Eosinophils # (0.04-0.35) X 10*3/uL Sodium 135 L (137-145) mmol/L BUN 38 H (7-17) mg/dL Glucose 227 H (74-99) mg/dL POC Glucose (mg/dL) (75-99) mg/dL Total Protein 5.7 L (6.3-8.2) g/dL Albumin 2.9 L (3.5-5.0) g/dL Microbiology - Last 24 Hours (Table) 03/22/21 15:54 Blood Culture - Preliminary Blood No Growth after 120 hours Assessment and Plan Plan: 1 acute hypoxic respiratory failure secondary to COVID-19 pneumonia. The patient was started on Decadron. The patient's symptoms outside the window for Remdesivir. She is currently on Decadron 6 mg by mouth daily. She is also on Lovenox for DVT prophylaxis. The patient is currently on 100% on a beta facemasks. She progressed and over the past 24-48 hours she has been requiring higher level of oxygen and she is currently on 100% nonrebreather facemask. Echocardiogram showed a preserved LV function with an ejection fraction of around 55%. She has moderate aortic valve sclerosis. She is having visual hallucinations for now and she is altered mentally. No status is 2 Bacteremia secondary to gram-positive bacilli, one blood culture out of 3, likely contaminant fall. After the bacillus which is probably contaminant. 3 Generalized weakness secondary to above 4 Diabetes mellitus ,steroid-induced hyperglycemia 5 Hypertension Plan: Continue Decadron Continue Lovenox, Decadron and vitamin supplement Blood cultures likely contaminant The percent nonrebreather facemask Sliding-scale coverage with insulin, and start the patient on Lantus insulin dose of 12 units daily basis. Pulmonary critical care service will follow Establish a code status. Her CODE STATUS is currently full. She is a high risk of developing further respiratory insufficiency and would like to know whether family or the decision-making on this patient would like to proceed with any aggressive intervention such as noninvasive positive pressure ventilator's and mechanical ventilation. Meanwhile, I'm going to repeat the chest x-ray. Repeat inflammatory markers. We'll continue to follow.
--- NOTE | 2021-03-28 10:45 | XR ---
EXAMINATION TYPE: XR chest 1V portable DATE OF EXAM: 03/28/2021 CLINICAL HISTORY: Difficulty breathing and covid progress study. TECHNIQUE: Single AP portable upright view of the chest is obtained. COMPARISON: Chest x-ray from one day earlier and older studies. CTA chest March 22, 2021 FINDINGS: Persistent multifocal and confluent reticular and parenchymal opacities with relative spar ing of left upper lung. Stable mild cardiomegaly with atherosclerotic and ectatic thoracic aorta. Oss eous structures are demineralized. Degenerative change bilateral glenohumeral joints. Underlying scol iosis. IMPRESSION: Multifocal and confluent opacities bilaterally with relative sparing of left upper lung c onsistent with covid-19 infection, no significant change from most recent x-ray.
[2021-03-28 12:47] LABS: Glucose,Whole Blood 216 mg/dL (75-99)
[2021-03-28 15:26] LABS: C Reactive Protein 8.8 mg/dL (<1.0)
[2021-03-28 16:58] LABS: Glucose,Whole Blood 269 mg/dL (75-99)
[2021-03-28 20:14] LABS: Glucose,Whole Blood 215 mg/dL (75-99)
[2021-03-29] MEDS ORDERED: ALPRAZolam 0.5 MG TAB PO STA (03:56)
[2021-03-29 06:26] LABS: Glucose,Whole Blood 281 mg/dL (75-99)
[2021-03-29] MEDS ORDERED: ALPRAZolam 0.25 MG TAB PO STA (06:27)
[2021-03-29] MEDS: KETOROLAC 15 MG/ML 1 ML VIAL IVP SCH ×3 (06:35→17:34)
[2021-03-29] MEDS: INSULIN ASPART (NovoLOG) 100 UNIT/ML VIAL SQ SCH ×2 (06:36→16:56)
[2021-03-29] MEDS ORDERED: ALPRAZolam 0.25 MG TAB PO PRN (06:46)
[2021-03-29] MEDS ORDERED: INSULIN DETEMIR (LEVEMIR) 100 UNIT/ML SYR SQ SCH (07:00)
[2021-03-29 07:57] LABS: Basophils % (A) 0 %; Eosinophils % (A) 0 %; HCT 37.6 % (34.0-46.0); HGB 12.4 gm/dL (11.4-16.0); Lymphocytes # (A) 0.3 k/uL (1.0-4.8); Lymphocytes % (A) 2 %; MCH 30.5 pg (25.0-35.0); MCV 92.5 fL (80.0-100.0); Mean Platelet Volume 7.4; Monocytes # (A) 0.4 k/uL (0-1.0); Monocytes % (A) 3 %; Neutrophils # (A) 12.7 k/uL (1.3-7.7); Neutrophils % (A) 95 %; Platelet Count 303 k/uL (150-450); RBC 4.07 m/uL (3.80-5.40); RDW 13.4 % (11.5-15.5); WBC 13.5 k/uL (3.8-10.6)
[2021-03-29 08:18] LABS: ALT 20 U/L (4-34); AST 25 U/L (14-36); African American GFR (CKD) >90 (>60 ml/min/1.73 sqM); Albumin 2.8 g/dL (3.5-5.0); Alkaline Phosphatase 71 U/L (38-126); Anion Gap 7 mmol/L; Blood Urea Nitrogen 41 mg/dL (7-17); Calcium 8.6 mg/dL (8.4-10.2); Carbon Dioxide 26 mmol/L (22-30); Chloride 103 mmol/L (98-107); Glucose 266 mg/dL (74-99); Non-African American GFR(CKD) 79 (>60 ml/min/1.73 sqM); Potassium 3.9 mmol/L (3.5-5.1); Sodium 136 mmol/L (137-145); Total Bilirubin 0.9 mg/dL (0.2-1.3); Total Protein 5.5 g/dL (6.3-8.2)
[2021-03-29] MEDS: ZINC SULFATE 220 MG CAP PO SCH (08:26)
[2021-03-29] MEDS: ASCORBIC ACID 500 MG TAB PO SCH (08:26)
[2021-03-29] MEDS: ENOXAPARIN 40 MG/0.4 ML SYRINGE SQ SCH (08:26)
[2021-03-29] MEDS: lisinopriL 10 MG TAB PO SCH (08:26)
[2021-03-29] MEDS: dexAMETHasone 2 MG TAB PO SCH (08:26)
[2021-03-29] MEDS: ASPIRIN 81 MG PO SCH (08:26)
[2021-03-29] MEDS: CHOLECALCIFEROL 25 MCG (1000 IU) TABLET PO SCH (08:26)
[2021-03-29] MEDS: amLODIPine 5 MG TAB PO SCH (08:26)
[2021-03-29] MEDS: ALBUTEROL HFA INHALER INHALATION SCH ×3 (08:32→16:13)
[2021-03-29 08:33] VITALS: BP 171/77; PULSE 104; RESP 36; TEMP 96.4
[2021-03-29] MEDS ORDERED: ARTIFICIAL TEARS-HYPROMELLOSE DROPS 15 ML BTL BOTH EYES PRN (09:01)
[2021-03-29] MEDS ORDERED: ONDANSETRON 4 MG/2 ML VIAL IVP PRN (09:01)
[2021-03-29] MEDS ORDERED: DRY MOUTH SPRAY 44.3 SPRAY/44.3 ML SPRAY MUCOUS MEM PRN (09:01)
[2021-03-29] MEDS ORDERED: guaiFENesin SYRUP 100MG/5ML 200 MG/10 ML CUP PO PRN (09:01)
[2021-03-29] MEDS ORDERED: ATROPINE OPHTH SOLN 1% 5ML BTL SUBLINGUAL PRN (09:01)
[2021-03-29] MEDS ORDERED: LORazepam 2 MG/ML INJ IV PRN (09:01)
[2021-03-29] MEDS ORDERED: MORPHINE SULFATE 2 MG/ML SYRINGE IVP ONE (09:01)
[2021-03-29] MEDS ORDERED: MORPHINE SULFATE (100 MG/2 ML) 100 MG in SODIUM CHLORIDE 0.9% 100 ML IV SCH (09:15)
[2021-03-29] MEDS ORDERED: ACETAMINOPHEN SUPPOSITORY 650 MG SUPP RECTAL PRN (17:02)
--- NOTE | 2021-03-29 18:42 | P.DS ---
Providers Date of admission: 03/22/21 19:38 Expected date of discharge: 03/29/21 Attending physician: Vianca Cruz MD Consults: 03/22/21 19:39 Consult Physician Routine Consulting Provider: Shiva Vargas Consult Reason/Comments: COVID-19 Do you want consulting provider notified?: Yes Primary care physician: [facility] Course: Discharge Diagnosis: COVID-19 pneumonitis Acute hypoxic respiratory failure Gram positive bacteremia, suspect contaminent Dm 2 with steroid induced hyperglycemia HTN Hypovolemia Severe protein calorie malnutrition, BMI 16.6 Paroxysmal A fib Debility fall precautions Hospital Course: Patient was an 89 -year-old female with diabetes and hypertension who presented with known COVID-19. She was seen in the ER and had an elevated d- dimer. She underwent a CTA which showed no pulmonary emboli but did show patchy pulmonary infiltrates. She was diagnosed with COVID-19 infection. She was started on zinc, vitamin C, and vitamin D. She initially was on room air. She slowly got worse and requiring more oxygen throughout her hospital stay. She was seen by pulmonary. When her O2 sats decreased she was started on Decadron. She had one of 3 blood cultures come back positive for Gram-positive bacilli, she initially was started on Vanco but when this was discovered to be a contaminant and it was discontinued. Unfortunately her 02 sats continued to decrease and she ultimately required a 15 L nonrebreather and 15 L high flow nasal cannula. Family decided to initiate comfort care which was done on the morning of 03/29. She peacefully on the evening of 03/29 at 1752 Echocardiogram: EF 55-60%, mild LVH, severe mitral calcification, moderate aortic valve sclerosis Patient seen and examined at bedside when she was made comfot measures. She was complaining of pain and shortness of breath, stating that she wants help and doesn't want this. Vital signs reviewed and stable. General: non toxic, no distress, appears at stated age Derm: warm, dry Head: atraumatic, normocephalic, symmetric Eyes: EOMI, no lid lag, anicteric sclera Mouth: no lip lesion, mucus membranes dry Cardiovascular: S1S2 tachy, no murmur, positive posterior tibial pulse bilateral, Lungs: Course bs bilateral, no rhonchi, no rales , no accessory muscle use Ext: no gross muscle atrophy, no edema, no contractures Neuro: CN II-XI grossly intact, no focal neuro deficits Psych: eyes closed, calm and collected but in pain A total of 35 minutes of time were spent preparing this complex discharge summary . Plan - Discharge Summary Discharge Rx Participant: No New Discharge Prescriptions: No Action lisinopriL 30 mg PO DAILY glipiZIDE [Glucotrol XL] 2.5 mg PO DAILY amLODIPine [Norvasc] 5 mg PO DAILY Aspirin EC [Ecotrin Low Dose] 81 mg PO DAILY Discharge Medication List amLODIPine [Norvasc] 5 mg PO DAILY 04/16/19 [History] glipiZIDE [Glucotrol XL] 2.5 mg PO DAILY 04/16/19 [History] lisinopriL 30 mg PO DAILY 04/16/19 [History] Aspirin EC [Ecotrin Low Dose] 81 mg PO DAILY 12/09/20 [History] Follow up Appointment(s)/Referral(s): Kal Juarez MD [Primary Care Provider] - 1-2 days - Preliminary Cause of Preliminary Cause of : COVID-19
== END 2021-03-29 19:45 | disposition expired | DRG 177 ==
LOC: EC 15:20 → 4SSUR 19:38 → 6NMEDSUR 20:05 → 3SCARD 03-27 11:17
PROVIDERS: ADMIT Internal Medicine; ATTEND Internal Medicine
PROC: 5A0945A Assistance with Respiratory Ventilation, 24-96 Consecutive Hours, High Flow/Velocity Cannula (ICD-10-PCS; principal; 2021-03-27)
DX: U07.1 COVID-19 (principal); J12.82 Pneumonia due to coronavirus disease 2019; E43 Unspecified severe protein-calorie malnutrition; J96.01 Acute respiratory failure with hypoxia; Z68.1 Body mass index [BMI] 19.9 or less, adult; R62.7 Adult failure to thrive; E11.65 Type 2 diabetes mellitus with hyperglycemia; D72.810 Lymphocytopenia; I48.0 Paroxysmal atrial fibrillation; Z66 Do not resuscitate; Z51.5 Encounter for palliative care; I35.8 Other nonrheumatic aortic valve disorders; E86.1 Hypovolemia; I10 Essential (primary) hypertension; E86.0 Dehydration; T38.0X5A Adverse effect of glucocorticoids and synthetic analogues, initial encounter; R44.1 Visual hallucinations; Z79.82 Long term (current) use of aspirin; Z79.84 Long term (current) use of oral hypoglycemic drugs; Z79.899 Other long term (current) drug therapy; Z87.891 Personal history of nicotine dependence; Z86.718 Personal history of other venous thrombosis and embolism
CPT/HCPCS: 36415; 71045; 71046; 71275; 80048; 80053; 80202; 81001; 82550; 82728; 83605; 83615; 83735; 83880; 84145; 84484; 85025; 85379; 85610; 85730; 86140; 87040; 87086; 93005; 93306; 94640; 94760; 96360; 96361; 99285